=== PATIENT | female | born 1975 | race Caucasian/White ===

== ENCOUNTER 2023-10-29 13:21 | Outpatient (AMB) | payer OTHER, SELFPAY ==
[2023-10-29 13:32] VITALS: PULSE 63; O2SAT 98; BMI 41.4
--- NOTE | 2023-10-29 13:32 | A.OFFVIS_ITS ---
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 The patient is a 47 year woman with a known history of asthma in addition to allergies who presents with worsening shortness of breath. 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 The patient does get worsening asthma flare-ups if she does get a viral syndrome. Typically requires to go on prednisone and hit antibiotic. She has been doing better at this time. Continues to be on Symbicort although the Symbicort is no longer covered. She finds the ventolin also helpful as needed. She is also concerned because her mother has significant respiratory conditions. Will go ahead and request additional blood work to assess potential comorbidities that may indeed exacerbate some of his respiratory symptoms. She does follow closely with allergy immunology and will be starting allergy shots now that her condition is improved. No recent imaging studies available. Will have the patient undergo a chest x-ray in addition to blood work. Will switch her Symbicort over to Dulera where she can have some benefit of the formoterol fast effect. in the office we did have the patient undergo a spirometry which demonstrated a normal flow volume loop which is very reassuring. She does take metoprolol for issues with her blood pressure in time she has taking propranolol for her anxiety. I did advise her to try to avoid the propranolol due to the fact that is a non selective beta agonist sick and worsen her wheezing and asthma symptoms. Based on the fact that her flow volume loop is normal then safe for her to continue the metoprolol this time but I would encourage her not to increase the dose if possible. [facility] Medical History (Updated 10/29/23 @ 21:01 by George Ghosh MD) Palpitation Asthma Social History (Updated 10/29/23 @ 13:37 by BRADY Rudolph) Patient Tobacco Use Status: Former Tobacco user Tobacco use type: Cigarette Review of Systems Const Denies fever(s) Eyes Reports no additional complaints ENT Reports nasal congestion Card Denies chest pain, Reports palpitations and Reports dyspnea on exertion Resp Reports cough, Reports dyspnea on exertion and Reports wheezing GI Reports no additional complaints Musc Reports arthralgias, Reports joint swelling and Reports limited range of motion Skin/Breast Denies rash Neuro Reports no additional complaints Endo Reports palpitations Cricket/Lymph Denies lymphadenopathy Aller/Immun Reports wheezing Physical Exam Vital Signs: Last Vital Signs Pulse 63 10/29/23 13:32 Pulse Ox 98 10/29/23 13:32 Oxygen Delivery Method Room Air 10/29/23 13:32 BMI result Body Mass Index 41.4 Const General: comfortable Neck Neck: Yes supple Chest Chest palpation & inspection: normal inspection of the chest Resp Effort & Inspection: normal respiratory effort Auscultation: diminished lung sounds Cardio Heart sounds: S1 normal heart sound present and S2 normal heart sound present GI Palpation (GI): Soft to palpation Skin General skin exam: no rashes or lesions noted Extrem General: Yes no clubbing, cyanosis or edema Office Procedures Spirometry Testing Spirometry Comments: Spirometry done in the office, Dr. Ghosh has the results results scanned to her chart. 09537- Spirometry Assessment & Plan Assessment & Plan (1) Palpitation: Code(s): R00.2 - Palpitations (2) Asthma: Code(s): J45.909 - Unspecified asthma, uncomplicated Qualifiers: Asthma severity: moderate Asthma persistence: persistent Asthma complication type: uncomplicated Qualified Code(s): J45.40 - Moderate persistent asthma, uncomplicated Plan stop symbicort start Dulera BID VIJAY as needed Bloodwork CXR F/U 2-3 months Orders: Orders Alpha 1 Anti-trypsin Today J45.909 - Unspecified asthma, uncomplicated, R00.2 - Palpitations Complete Blood Count Auto Diff Today J45.909 - Unspecified asthma, uncomplicated, R00.2 - Palpitations XR chest 2V Today J45.909 - Unspecified asthma, uncomplicated Immunoglobulin E Today J45.909 - Unspecified asthma, uncomplicated, R00.2 - Palpitations Immunoglobulin G Subclasses Today J45.909 - Unspecified asthma, uncomplicated, R00.2 - Palpitations Immunoglobulins,IgG IgA IgM Today J45.909 - Unspecified asthma, uncomplicated, R00.2 - Palpitations AMB Spirometry Testing Today J45.909 - Unspecified asthma, uncomplicated Medications: New albuterol sulfate 90 mcg/actuation (Ventolin HFA) 2 puffs inhalation Q6H 30 days PRN 8.5 grams 11RF shortness of breath or wheezing mometasone-formoterol 200-5 mcg/actuation (Dulera) 2 puffs inhalation Q12H 30 days 13 grams 11RF Coding Level of Care Code New Pt Level 4 (05545) Diagnoses Palpitation R00.2 Moderate persistent asthma without complication J45.40 Asthma severity: moderate Asthma persistence: persistent Asthma complication type: uncomplicated CPT Codes Spirometry - CPT: 44046- Spirometry ([id number]) Time Spent (min) 38
== END 2023-10-29 14:11 | disposition home or self-care (01) ==
PROVIDERS: PCP Internal Medicine; Referring Provider Internal Medicine; Visit Provider Hospitalist
DX: J45.40 Moderate persistent asthma, uncomplicated (principal); R00.2 Palpitations
CPT/HCPCS: 94010; 99204

== ENCOUNTER → 2023-10-29 13:21 | Outpatient (BNVA) | payer OTHER, SELFPAY | PROVIDERS: PCP Internal Medicine; Referring Provider Internal Medicine; Visit Provider Hospitalist | DX: J45.40 Moderate persistent asthma, uncomplicated (principal); R00.2 Palpitations | CPT/HCPCS: 94010 ==

== ENCOUNTER 2024-01-30 13:52 | Outpatient (AMB) | payer OTHER, SELFPAY ==
[2024-01-30 14:03] VITALS: PULSE 67; O2SAT 97; BMI 40.9
--- NOTE | 2024-01-30 14:03 | MHC.OFFVIS ---
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 The patient does get worsening asthma flare-ups if she does get a viral syndrome. Typically requires to go on prednisone and hit antibiotic. She has been doing better at this time. Continues to be on Symbicort although the Symbicort is no longer covered. She finds the ventolin also helpful as needed. She is also concerned because her mother has significant respiratory conditions. Will go ahead and request additional blood work to assess potential comorbidities that may indeed exacerbate some of his respiratory symptoms. She does follow closely with allergy immunology and will be starting allergy shots now that her condition is improved. No recent imaging studies available. Will have the patient undergo a chest x-ray in addition to blood work. Will switch her Symbicort over to Dulera where she can have some benefit of the formoterol fast effect. in the office we did have the patient undergo a spirometry which demonstrated a normal flow volume loop which is very reassuring. She does take metoprolol for issues with her blood pressure in time she has taking propranolol for her anxiety. I did advise her to try to avoid the propranolol due to the fact that is a non selective beta agonist sick and worsen her wheezing and asthma symptoms. Based on the fact that her flow volume loop is normal then safe for her to continue the metoprolol this time but I would encourage her not to increase the dose if possible. 01/30/2024 the patient is here for pulmonary follow-up visit. Overall the patient has been doing well. We sent her Dulera but seems that he started hard time. She is having some shortness of breath. Therefore I do believe that she will do better with rescue inhaler. Will go ahead and switch it to the pharmacy. She did have a chest x-ray which I personally reviewed no significant abnormalities noted. She also had blood work. Her eosinophils were within normal limits. The patient also has been having issues with sleep. Complains of daytime drowsiness. Her [place] score is elevated 08/02. 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 The patient does have risk for sleep apnea. In addition to that she is going to need a total hip replacement. And she will need a sleep study at this time to assess her for sleep apnea in specially before her surgery. The patient is working on weight loss in order to be able have her surgery. Will therefore optimize respiratory therapy as well to try to help her with her significant wheezing. [facility] Medical History (Updated 01/30/24 @ 14:11 by George Ghosh MD) Palpitation Asthma Social History (Updated 10/29/23 @ 13:37 by BRADY Rudolph) Patient Tobacco Use Status: Former Tobacco user Tobacco use type: Cigarette Review of Systems Const Reports daytime sleepiness, Reports difficulty sleeping, Denies fever(s), Reports headache(s), Reports snoring and Reports stops breathing during sleep Eyes Reports no additional complaints ENT Reports headache(s) and Reports nasal congestion Card Denies chest pain, Reports palpitations and Reports dyspnea on exertion Resp Reports cough, Reports dyspnea on exertion, Reports snoring and Reports wheezing GI Reports no additional complaints Musc Reports arthralgias, Reports joint swelling and Reports limited range of motion Skin/Breast Denies rash Neuro Reports no additional complaints and Reports headache(s) Endo Reports palpitations Cricket/Lymph Denies lymphadenopathy Aller/Immun Reports wheezing Physical Exam Vital Signs: Last Vital Signs Pulse 67 01/30/24 14:03 Pulse Ox 97 01/30/24 14:03 Oxygen Delivery Method Room Air 01/30/24 14:03 BMI result Body Mass Index 40.9 Const General: comfortable Neck Neck: Yes supple Chest Chest palpation & inspection: normal inspection of the chest Resp Effort & Inspection: normal respiratory effort and prolonged expiratory phase Auscultation: wheezes and diminished lung sounds Cardio Heart sounds: S1 normal heart sound present and S2 normal heart sound present GI Palpation (GI): Soft to palpation Skin General skin exam: no rashes or lesions noted Extrem General: Yes no clubbing, cyanosis or edema Assessment & Plan Assessment & Plan (1) Asthma: Code(s): J45.909 - Unspecified asthma, uncomplicated Category: Medical Qualifiers: Asthma complication type: uncomplicated Asthma persistence: persistent Asthma severity: moderate Qualified Code(s): J45.40 - Moderate persistent asthma, uncomplicated (2) KARLEY (obstructive sleep apnea): Code(s): G47.33 - Obstructive sleep apnea (adult) (pediatric) Category: Medical (3) Palpitation: Code(s): R00.2 - Palpitations Category: Medical Plan stop Dulera BID start Breztri BID VIJAY as needed home PSG F/U 3 months Medications: New bgqkfbeffa-bqjubiju-zghgdxnonm 160-9-4.8 mcg/actuation (Breztri Aerosphere) 2 inhalations inhalation BID 30 days 10.7 grams 0RF tmifvhhtql-cgeyzncp-nomemwqgak 160-9-4.8 mcg/actuation (Breztri Aerosphere) 2 inhalations inhalation BID 10.7 grams 0RF 30 days Coding Level of Care Code Est Pt Level 4 (35463) Diagnoses Moderate persistent asthma without complication J45.40 Asthma complication type: uncomplicated Asthma persistence: persistent Asthma severity: moderate KARLEY (obstructive sleep apnea) G47.33 Palpitation R00.2 Time Spent (min) 17
== END 2024-01-30 14:27 | disposition home or self-care (01) ==
PROVIDERS: PCP Internal Medicine; Visit Provider Hospitalist
DX: J45.40 Moderate persistent asthma, uncomplicated (principal); G47.33 Obstructive sleep apnea (adult) (pediatric); R00.2 Palpitations
CPT/HCPCS: 99214

== ENCOUNTER → 2024-01-30 13:52 | Outpatient (BNVA) | payer OTHER, SELFPAY | PROVIDERS: PCP Internal Medicine; Visit Provider Hospitalist | DX: J45.909 Unspecified asthma, uncomplicated (principal); R00.2 Palpitations ==

== ENCOUNTER 2024-08-05 08:22 | Outpatient (AMB) | payer OTHER, SELFPAY ==
--- NOTE | 2024-08-05 08:31 | A.OFFVIS_ITS ---
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 The patient does get worsening asthma flare-ups if she does get a viral syndrome. Typically requires to go on prednisone and hit antibiotic. She has been doing better at this time. Continues to be on Symbicort although the Symbicort is no longer covered. She finds the ventolin also helpful as needed. She is also concerned because her mother has significant respiratory conditions. Will go ahead and request additional blood work to assess potential comorbidities that may indeed exacerbate some of his respiratory symptoms. She does follow closely with allergy immunology and will be starting allergy shots now that her condition is improved. No recent imaging studies available. Will have the patient undergo a chest x-ray in addition to blood work. Will switch her Symbicort over to Dulera where she can have some benefit of the formoterol fast effect. in the office we did have the patient undergo a spirometry which demonstrated a normal flow volume loop which is very reassuring. She does take metoprolol for issues with her blood pressure in time she has taking propranolol for her anxiety. I did advise her to try to avoid the propranolol due to the fact that is a non selective beta agonist sick and worsen her wheezing and asthma symptoms. Based on the fact that her flow volume loop is normal then safe for her to continue the metoprolol this time but I would encourage her not to increase the dose if p ossible. 01/30/2024 the patient is here for pulmonary follow-up visit. Overall the patient has been doing well. We sent her Dulera but seems that he started hard time. She is having some shortness of breath. Therefore I do believe that she will do better with rescue inhaler. Will go ahead and switch it to the pharmacy. She did have a chest x-ray which I personally reviewed no significant abnormalities noted. She also had blood work. Her eosinophils were within normal limits. The patient also has been having issues with sleep. Complains of daytime drowsiness. Her [place] score is elevated 08/02. 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 The patient does have risk for sleep apnea. In addition to that she is going to need a total hip replacement. And she will need a sleep study at this time to assess her for sleep apnea in specially before her surgery. The patient is working on weight loss in order to be able have her surgery. Will therefore optimize respiratory therapy as well to try to help her with her significant wheezing. 08/05/2024 the patient is here for a pulmonary follow-up visit. The patient overall has been doing well. She did have a respiratory illness in the beginning of the fall. Lastly that she developed COVID. She did take Paxlovid. The cord did not affect her lungs. She is back to her baseline. She did try the Breztri inhaler but it was not helpful. Therefore she went back to Dulera. The pressure was causing cough. Now her insurance is no longer covering Dulera and will cover Symbicort next year. Was not Symbicort in the beginning of the year. For now the patient is doing well. She had an x-ray that was without any acute disease. The patient also was requested to have a home sleep study. However the insurance would cover here [place]. Therefore we have to send her to a different institution. Will go ahead and start the process. Patient returns 6 months. If she has any issues prior to that she will call for an earlier assessment. [facility] Medical History (Updated 08/07/24 @ 14:22 by Dionicio Cm MD) Palpitation Asthma Family History (Updated 08/05/24 @ 10:20 by RAE Metcalf) Father History of heart attack Mother Cancer History of emphysema IgG deficiency Social History (Updated 08/05/24 @ 10:17 by RAE Metcalf) Household Members: Family Housing: House Alcohol intake: current Comment: Rare Patient Tobacco Use Status: Former Tobacco user Tobacco use type: Cigarette Cigarettes Per Day: 0.5 Years Smoked: 2 Review of Systems Const Reports daytime sleepiness, Reports difficulty sleeping, Denies fever(s), Rep orts headache(s), Reports snoring and Reports stops breathing during sleep Eyes Reports no additional complaints ENT Reports headache(s) and Reports nasal congestion Card Denies chest pain, Denies palpitations and Reports dyspnea on exertion Resp Reports cough, Reports dyspnea on exertion, Reports snoring and Reports wheezing GI Reports no additional complaints Musc Reports arthralgias, Reports joint swelling and Reports limited range of motion Skin/Breast Denies rash Neuro Reports no additional complaints and Reports headache(s) Endo Denies palpitations Cricket/Lymph Denies lymphadenopathy Aller/Immun Reports wheezing Physical Exam Vital Signs: Last Vital Signs Pulse 72 08/05/24 08:32 BP 140/78 H 08/05/24 08:32 Pulse Ox 97 08/05/24 08:32 Oxygen Delivery Method Room Air 08/05/24 08:32 BMI result Body Mass Index 42.3 Const General: comfortable Neck Neck: Yes supple Chest Chest palpation & inspection: normal inspection of the chest Resp Effort & Inspection: normal respiratory effort and No prolonged expiratory phase Auscultation: clear to auscultation bilaterally and no wheezes Cardio Heart sounds: S1 normal heart sound present and S2 normal heart sound present GI Palpation (GI): Soft to palpation Skin General skin exam: no rashes or lesions noted Extrem General: Yes no clubbing, cyanosis or edema Immunizations pneumoc 20-jessica conj-dip cr(PF) 0.5 mL IM syringe Performing Provider: George Ghosh MD [place] [facility] [place] [facility] Administered by: Kell Allen LPN on 08/05/24 08:58 Dose Route Admin Location Dispensed Lot Number Expiration Date NDC Vascular Ultrasound Technician 0.5 mL IM Left Deltoid 0.5 mL [id number] 10/09/25 [employer] VIS Given Date VIS Provided VIS Publication Date 08/05/24 Single Vaccine 23 Eligibility Eligibility Date Funding Source Not [facility] Eligible 08/05/24 Private Assessment & Plan Assessment & Plan (1) Asthma: Code(s): J45.909 - Unspecified asthma, uncomplicated Category: Medical Qualifiers: Asthma complication type: uncomplicated Asthma persistence: persistent Asthma severity: moderate Qualified Code(s): J45.40 - Moderate persistent asthma, uncomplicated (2) KARLEY (obstructive sleep apnea): Code(s): G47.33 - Obstructive sleep apnea (adult) (pediatric) Category: Medical (3) Palpitation: Code(s): R00.2 - Palpitations Category: Medical Plan stopped Breztri BID continue Dulera for now. Will change to symbicort VIJAY as needed home PSG F/U 6 months Orders: Orders Pneumococcal 20 Immunization 08/05/24 Z23 - Encounter for immunization Medications: Changed From albuterol sulfate 90 mcg/actuation (Ventolin HFA) 2 puffs inhalation Q6H 30 days PRN 8.5 grams 11RF shortness of breath or wheezing To albuterol sulfate 90 mcg/actuation 2 puffs inhalation Q6H PRN 8.5 grams 11RF shortness of breath or wheezing 30 days Coding Level of Care Code Est Pt Level 4 (24616) Diagnoses Moderate persistent asthma without complication J45.40 Asthma complication type: uncomplicated Asthma persistence: persistent Asthma severity: moderate KARLEY (obstructive sleep apnea) G47.33 Palpitation R00.2 Time Spent (min) 16
[2024-08-05 08:32] VITALS: BP 140/78; PULSE 72; O2SAT 97; BMI 42.3
== END 2024-08-05 08:54 | disposition home or self-care (01) ==
PROVIDERS: PCP Internal Medicine; Visit Provider Hospitalist
DX: J45.40 Moderate persistent asthma, uncomplicated (principal); G47.33 Obstructive sleep apnea (adult) (pediatric); R00.2 Palpitations
CPT/HCPCS: 99214

== ENCOUNTER → 2024-08-05 08:22 | Outpatient (BNVA) | payer OTHER, SELFPAY | PROVIDERS: PCP Internal Medicine; Visit Provider Hospitalist | DX: H16.229 Keratoconjunctivitis sicca, not specified as Sjogren's, unspecified eye (principal); R68.2 Dry mouth, unspecified; R21 Rash and other nonspecific skin eruption; Z23 Encounter for immunization; J45.40 Moderate persistent asthma, uncomplicated; G47.33 Obstructive sleep apnea (adult) (pediatric); R00.2 Palpitations | CPT/HCPCS: 90471; 90677 ==

== ENCOUNTER 2024-08-05 10:01 | Outpatient (AMB) | payer OTHER, SELFPAY ==
--- NOTE | 2024-08-05 10:09 | MHC.OFFVIS ---
Vital Signs 08/05/24 10:20 Height 5 ft 7.5 in Weight 275 lb 12.772 oz BMI 42.6 BP 140/82 H Blood Pressure Location Lt brachial Position Sitting Respiration 16 Pulse 61 Pulse Source Pulse Oximeter Pulse Oximetry (%) 97 Oxygen Delivery Method Room Air Intake Visit Reasons: SS Intake Note: Patient presents for SS. Dry eyes, dry lips and dry legs Allergies codeine Adverse Reaction (Severe, Verified 08/05/24 10:12) Nausea and Vomiting cromolyn Adverse Reaction (Severe, Verified 08/05/24 10:12) Skin Rash minocycline Adverse Reaction (Severe, Verified 08/05/24 10:12) Hemorrage HPI HPI SS: Details: Patient [facility] month evaluation of Sjogren syndrome but I do not have results. She has dry eyes and dry mouth. Her motor bus driver is treating her for dry eyes and she is currently on Xiidra and Systane with benefit. Cleaning Matron will be doing Nataliia's test next spring. dry mouth is not controlled. Drinks 60 oz water a day. She has relief with xylimelts. She has tried Biotene spray without benefit. She had a lesion on her right breast with ultrasound showing thickening of skin. Biopsy was done with results pending. She is trying to obtain skin biopsy results for me that she has had done in the past. She had tried to print lab results from [facility] but unfortunately the values of the test results for patient were not on the documentation that patient brought in only reference ranges. Denies fevers, new rash, dyspnea, urinary symptoms, Raynaud's phenomenon. [facility] Medical History (Updated 08/07/24 @ 14:22 by Dionicio Cm MD) Palpitation Asthma Family History (Updated 08/05/24 @ 10:20 by RAE Metcalf) Father History of heart attack Mother Cancer History of emphysema IgG deficiency Social History (Updated 08/05/24 @ 10:17 by RAE Metcalf) Household Members: Family Housing: House Alcohol intake: current Comment: Rare Patient Tobacco Use Status: Former Tobacco user Tobacco use type: Cigarette Cigarettes Per Day: 0.5 Years Smoked: 2 Review of Systems Const All systems reviewed & are unremarkable except as noted in HPI and below Physical Exam Vital Signs: Last Vital Signs Pulse 61 08/05/24 10:20 Resp 16 08/05/24 10:20 BP 140/82 H 08/05/24 10:20 Pulse Ox 97 08/05/24 10:20 Oxygen Delivery Method Room Air 08/05/24 10:20 BMI result Body Mass Index 42.6 Const Other: General: Comfortable Oral: No lesions present. Lymph nodes: No cervical lymphadenopathy CVS: RRR Respiratory: clear to auscultation bilaterally. Good respiratory effort Skin: Anterior chest telangiectasia present, biopsy lesion noted right anterior superior breast MSK: No tenderness of joints. No synovitis. Good range of motion of upper extremity lower extremity. Assessment & Plan Assessment & Plan (1) Keratoconjunctivitis sicca: Comment: Left eye noted on eye exam 02/28/2023. Bilateral dry eyes treated with Xiidra and sustained with benefit. She also has meibomian gland dysfunction. Follows with [facility]. She also has symptoms of dry mouth and skin lesions with reported skin thickening on breast lesion concerning for morphea but with biopsy results pending. Workup was done last visit but I do not have results. I will request lab results from [facility] [place] and have patient follow-up closely to review results. Code(s): H16.229 - Keratoconjunctivitis sicca, not specified as Sjogren's, unspecified eye Category: Medical Plan: Requesting lab results and clinic notes from [facility] Continue follow-up with Ophthalmology for management of keratoconjunctivitis sicca. She will plan to have Nataliia's tests done next spring. Return to clinic in 1 month (2) Dry mouth: Comment: Controlled. Code(s): R68.2 - Dry mouth, unspecified Category: Medical Plan: See above Continue XyliMelts as needed She will try OTC Biotene products (3) Rash and other nonspecific skin eruption: Comment: Skin lesion on right breast was biopsy noted to be thickened on ultrasound. ?Morphea Code(s): R21 - Rash and other nonspecific skin eruption Category: Medical Plan: Patient will obtain skin biopsy results and bring it to follow-up appointment Return to clinic in 1 month Coding Level of Care Code Est Pt Level 4 (27130) Complex EM visit Add On G2211 Diagnoses Keratoconjunctivitis sicca H16.229 Dry mouth R68.2 Rash and other nonspecific skin eruption R21
[2024-08-05 10:20] VITALS: BP 140/82; PULSE 61; RESP 16; O2SAT 97; BMI 42.6
== END 2024-08-05 10:59 | disposition home or self-care (01) ==
PROVIDERS: PCP Internal Medicine; Visit Provider Internal Medicine Rheumatology
DX: H16.229 Keratoconjunctivitis sicca, not specified as Sjogren's, unspecified eye (principal); R68.2 Dry mouth, unspecified; R21 Rash and other nonspecific skin eruption
CPT/HCPCS: 99214; G2211

== ENCOUNTER 2024-12-31 12:45 | Outpatient (AMB) | payer OTHER, SELFPAY ==
[2024-12-31 13:01] VITALS: BP 120/70; PULSE 80; O2SAT 98; BMI 42.7
--- NOTE | 2024-12-31 13:01 | A.OFFVIS_ITS ---
Vital Signs 12/31/24 13:01 Height 5 ft 7.5 in Weight 276 lb 10.882 oz BMI 42.7 BP 120/70 Blood Pressure Location Lt brachial Position Sitting Pulse 80 Pulse Source Pulse Oximeter Pulse Oximetry (%) 98 Oxygen Delivery Method Room Air Intake Visit Reasons: Follow up sleep studylunch check from being sick Allergies cromolyn Adverse Reaction (Severe, Verified 12/31/24 13:05) Skin Rash minocycline Adverse Reaction (Severe, Verified 12/31/24 13:05) Hemorrage HPI Comments Details: The patient is a 49 year woman with a known history of asthma in addition to allergies who presents with worsening shortness of breath. 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 The patient does get worsening asthma flare-ups if she does get a viral syndrome. Typically requires to go on prednisone and hit antibiotic. She has been doing better at this time. Continues to be on Symbicort although the Symbicort is no longer covered. She finds the ventolin also helpful as needed. She is also concerned because her mother has significant respiratory conditions. Will go ahead and request additional blood work to assess potential comorbidities that may indeed exacerbate some of his respiratory symptoms. She does follow closely with allergy immunology and will be starting allergy shots now that her condition is improved. No recent imaging studies available. Will have the patient undergo a chest x-ray in addition to blood work. Will switch her Symbicort over to Dulera where she can have some benefit of the formoterol fast effect. in the office we did have the patient undergo a spirometry which demonstrated a normal flow volume loop which is very reassuring. She does take metoprolol for issues with her blood pressure in time she has taking propranolol for her anxiety. I did advise her to try to avoid the propranolol due to the fact that is a non selective beta agonist sick and worsen her wheezing and asthma symptoms. Based on the fact that her flow volume loop is normal then safe for her to continue the metoprolol this time but I would encourage her not to increase the dose if possible. 01/30/2024 the patient is here for pulmonary follow-up visit. Overall the patient has been doing well. We sent her Dulera but seems that he started hard time. She is having some shortness of breath. Therefore I do believe that she will do better with rescue inhaler. Will go ahead and switch it to the pharmacy. She did have a chest x-ray which I personally reviewed no significant abnormalities noted. She also had blood work. Her eosinophils were within normal limits. The patient also has been having issues with sleep. Complains of daytime drowsiness. Her Holcombe score is elevated 08/02. 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 The patient does have risk for sleep apnea. In addition to that she is going to need a total hip replacement. And she will need a sleep study at this time to assess her for sleep apnea in specially before her surgery. The patient is working on weight loss in order to be able have her surgery. Will therefore optimize respiratory therapy as well to try to help her with her significant wheezing. 08/05/2024 the patient is here for a pulmonary follow-up visit. The patient overall has been doing well. She did have a respiratory illness in the beginning of the fall. Lastly that she developed COVID. She did take Paxlovid. The cord did not affect her lungs. She is back to her baseline. She did try the Breztri inhaler but it was not helpful. Therefore she went back to Dulera. The pressure was causing cough. Now her insurance is no longer covering Dulera and will cover Symbicort next year. Was not Symbicort in the beginning of the year. For now the patient is doing well. She had an x-ray that was without any acute disease. The patient also was requested to have a home sleep study. However the insurance would cover here [place]. Therefore we have to send her to a different institution. Will go ahead and start the process. Patient returns 6 months. If she has any issues prior to that she will call for an earlier assessment. 12/31/2024 the patient is here for a pulmonary follow-up visit. Overall the ciaran marie has been doing okay. She was sick with a respiratory viral illness resulting worsening cough chest congestion wheezing. She did go to an urgent care and the patient was given Augmentin. She took it for about for 5 days but then developed significant diarrhea and she stopped it. She did call the office we have called some prednisone she did start taking it and she has been a little better. Her cough still bothering her at nighttime she has a hard time sleeping will go and start her on a Z-Krishna and also will go ahead and provide her cough medication. She will continue with respiratory therapy. In the meantime she does have some daytime drowsiness. Holcombe score is elevated 8/24 but primarily now because she has a cough. She did have a sleep study demonstrating mild sleep apnea with an AHI of 7. At this point she can continue with positional therapy as this may be just as effective to her sleep apnea. She can proceed with her orthopedic surgery at this time. The patient did have a chest x-ray at the urgent care I do not have the results but she was told that they will call her if any abnormalities were noted. She was not called. [facility] Medical History (Updated 08/07/24 @ 14:22 by Dionicio Cm MD) Palpitation Asthma Family History (Updated 08/05/24 @ 10:20 by RAE Metcalf) Father History of heart attack Mother Cancer History of emphysema IgG deficiency Social History (Reviewed 12/31/24 @ 13:07 by Angie Bravo [facility]) Household Members: Family Housing: House Alcohol intake: current Comment: Rare Patient Tobacco Use Status: Former Tobacco user Tobacco use type: Cigarette Cigarettes Per Day: 0.5 Years Smoked: 2 Review of Systems Const Denies chills, Reports fatigue, Denies fever(s), Denies weight gain and Denies weight loss Eyes Reports no additional complaints ENT Denies dizziness Card Denies chest pain, Denies leg edema, Denies lightheadedness, Denies palpitations, Denies dyspnea on exertion, Denies orthopnea and Denies other Resp Reports cough, Denies dyspnea on exertion and Reports wheezing GI Denies hematochezia and Denies change in stool character Musc Denies abnormal gait, Denies muscle weakness, Denies numbness, Denies radiating pain into limb and Denies tingling Skin/Breast Denies rash Neuro Denies abnormal gait, Denies dizziness, Denies numbness and Denies tingling Endo Reports fatigue and Denies palpitations Cricket/Lymph Denies lymphadenopathy Aller/Immun Reports wheezing Physical Exam Vital Signs: Last Vital Signs Pulse 80 12/31/24 13:01 BP 120/70 12/31/24 13:01 Pulse Ox 98 12/31/24 13:01 Oxygen Delivery Method Room Air 12/31/24 13:01 BMI result Body Mass Index 42.7 Const General: comfortable Neck Neck: Yes supple Chest Chest palpation & inspection: normal inspection of the chest Resp Effort & Inspection: normal respiratory effort, Actively coughing and No prolonged expiratory phase Auscultation: no wheezes and diminished lung sounds Cardio Heart sounds: S1 normal heart sound present and S2 normal heart sound present GI Palpation (GI): Soft to palpation Skin General skin exam: no rashes or lesions noted Extrem General: Yes no clubbing, cyanosis or edema Assessment & Plan Assessment & Plan (1) Asthma: Code(s): J45.909 - Unspecified asthma, uncomplicated Category: Medical Qualifiers: Asthma complication type: uncomplicated Asthma persistence: persistent Asthma severity: moderate Qualified Code(s): J45.40 - Moderate persistent asthma, uncomplicated (2) KARLEY (obstructive sleep apnea): Code(s): G47.33 - Obstructive sleep apnea (adult) (pediatric) Category: Medical (3) Palpitation: Code(s): R00.2 - Palpitations Category: Medical Plan continue symbicort VIJAY as needed nebs BID until better start Azithromycin cough medicine home PSG, only mild KARLEY, will continue positional therapy F/U 6 months Medications: New azithromycin 500 mg PO DAILY 5 tabs 0RF 5 days codeine-guaifenesin 10-100 mg/5 mL 10 mL PO Q6H PRN 300 mL 0RF cough 10 days ipratropium-albuterol 0.5 mg-3 mg(2.5 mg base)/3 mL 3 mL inhalation Q6-8H PRN 180 mL 6RF shortness of breath 30 days Changed From budesonide-formoterol 160-4.5 mcg/actuation (Symbicort) inhalation To budesonide-formoterol 160-4.5 mcg/actuation (Symbicort) 2 inhalations inhalation BID 10.2 grams 11RF 30 days Coding Level of Care Code Est Pt Level 4 (56138) Diagnoses Moderate persistent asthma without complication J45.40 Asthma complication type: uncomplicated Asthma persistence: persistent Asthma severity: moderate KARLEY (obstructive sleep apnea) G47.33 Palpitation R00.2 Time Spent (min) 17
--- OUTSIDE RECORDS SUMMARY | 2024-12-31 15:01 | XMS_ITS | Referral Summary ---
Author Organization [facility] Address [address] [place] [address] Care Team Providers Care Machinist Linotype Name Role Phone Zulma Taylor Primary Care Provider [phone] Allergies Active Allergy Reactions Criticality Noted Date Comments Levonorgestrel-Ethinyl Estrad Unknown 03/05/2022 Minocycline Hcl Headache Oxycodone-Acetaminophen Nausea,Headache, Naus ea And Vomiting,Vomiting Medium 03/02/2015 Migraine, vomiting. Potassium Dichromate Unknown 10/30/[address] (PROTONIX) 20 mg tablet Take 20 mg by mouth daily. 2 Active fexofenadine (ANDREW) 180 mg tablet Take 180 mg by mouth daily. 2 Active azelastine (ASTELIN) 137 mcg (0.1 %) nasal spray Administer 2 sprays into each nostril once a day. 2 Active azelastine (OPTIVAR) 0.05 % ophthalmic solution 2 Active acyclovir (ZOVIRAX) 5% cream 1 application as needed. 2 Active albuterol 2.5 mg/3 mL (0.083%) nebulizer solution as needed. 1 Active budesonide-form oteroL (SYMBICORT) 160-4.5 mcg inhaler Inhale 2 puffs by mouth once a day. 1 Active clindamycin (CLEOCIN T) 1 % lotion Apply 1 application topically to the affected area as needed. 2 Active cyclobenzaprine (FLEXERIL) 10 mg tablet Take 10 mg by mouth as needed. 2 Active dextroamphetami ne-amphetamine XR (ADDERALL XR) 20 mg capsule Take 20 mg by mouth as needed. 2 Active hydroCHLOROthia zide (HYDRODIURIL) 25 mg tablet Take 12.5 mg by mouth once a day. 2 Active LORazepam (ATIVAN) 0.5 mg tablet Take 0.5 mg by mouth as needed. Active mometasone (NASONEX) nasal spray Administer 2 sprays into affected nostril(s) once a day. Active propranoloL (INDERAL) 10 mg tablet Take 10 mg by mouth as needed. Active valACYclovir (VALTREX) 500 mg tablet Take 500 mg by mouth as needed. Active fluticasone propionate (FLONASE) 50 mcg/actuation nasal spray Administer 1 spray into each nostril once a day. Active metoprolol succinate XL (TOPROL XL) 50 mg tablet Take 50 mg by mouth daily. 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 Overview (03/05/2022): Sigmoid mass History of hip replacement, total, left 01/24/20 19 Multinodular goiter 01/23/2019 Herpes labialis 01/23/2019 Raynaud's disease 01/23/2019 Perennial allergic rhinitis 01/23/2019 Anxiety 03/14/2015 GERD (gastroesophageal reflux disease) 5 Osteoarthritis of left hip 01/29/2015 Asthma 01/13/2015 Colitis cystica profunda 10/30/2013 Elevated antibody levels 10/28/2013 Rosacea 08/01/2012 Livedo reticularis 08/01/2012 Flushing 06/26/2012 Hidradenitis suppurativa 06/26/2012 Acne vulgaris 06/26/2012 Resolved Problems Problem Noted Date Diagnosed Date Resolved Date Joint pain, hip Left 10/01/2012 023 Social History Tobacco Use Types Packs/Day Years Used Date Smoking Tobacco: Former Passive Smoke Exposure: Past Smokeless Tobacco: Never Comments:: Alcohol Use Standard Drinks/Week Comments Not Currently 0 (1 standard drink = 0.6 oz pur e alcohol) Comments Unknown Sex and Gender Information Value Date Recorded Sex Assigned at Female 09/05/2022 8:05 AM EST Legal Sex Female 8:26 AM EDT Gender Identity Female 09/05/2022 8:05 AM EST Sexual Orientation Straight 09/05/2022 8: 05 AM EST Last Filed Vital Signs Vital Sign Reading Time Taken Comments Blood Pressure 126/84 03/07/2023 7:38 AM EDT Pulse 66 03/07/2023 7:38 AM EDT Temperature 36.7 ??C (98 ??F) 03/07/2023 7:38 AM EDT Respiratory Rate - - Oxygen Saturation 100% 08/10/2014 9:48 AM EST Inhaled Oxygen Concentration - - Weight 124.3 kg (274 lb) 03/07/2023 7:38 AM EDT Height 171.5 cm (5' 7.5 ) 03/05/2022 7:41 AM EDT Body Mass Index 42.28 03/05/2022 7:41 AM EDT Plan of Treatment Not on file Procedures * Due to [place] [employer] law, this organization might not be sharing negative HIV tests. Procedure Name Priority Date/Time Associated Diagnosis Comments COMPREHENSIVE METABOLIC PANEL Routine 03/07/2023 8:39 AM EDT Abnormal liver function test from Last 3 Months or Most Recently Relevant to Health Maintenance Results * Due to [place] [employer] law, this organization might not be sharing negative HIV tests. * Comprehensive metabolic panel (03/07/2023 8:39 AM EDT) NA 137 135 - 145 mmol/L 03/07/2023 9:54 AM EDT [facility] K 3.7 3.5 - 5.3 mmol/L 03/07/2023 9:54 AM EDT [facility] Cl 101 97 - 110 mmol/L 03/07/2023 9:54 AM [facility] CO2 30 24 - 32 mmol/L 03/07/2023 9:54 AM [facility] Anion Gap 6 5 - 15 03/07/2023 9:54 AM [facility] Glucose 96 70 - 99 mg/dL 03/07/2023 9:54 AM [facility] Creatinine 0.68 0.50 - 1.20 mg/dL 03/07/2023 9:54 AM [facility] Calcium 9.5 8.7 - 10.7 mg/dL 03/07/2023 9:54 AM [facility] Total Protein 7.7 6.0 - 8.0 g/dL 03/07/2023 9:54 AM [facility] Albumin 4.2 3.5 - 4.8 g/dL 03/07/2023 9:54 AM [facility] Bilirubin, Total 0.4 0.3 - 1.2 mg/dL 03/07/2023 9:54 AM [facility] Alkaline Phosphatase 58 30 - 115 U/L 03/07/2023 9:54 AM [facility] AST 17 10 - 40 U/L 03/07/2023 9:54 AM [facility] ALT 16 10 - 40 U/L 03/07/2023 9:54 AM [facility] BUN 15 7 - 23 mg/dL 03/07/2023 9:54 AM [facility] eGFR >90 >=60 mL/min/1. 73m2 03/07/2023 9:54 AM [facility] Comment:The estimated glomer ular filtration rate (eGFR) is calculated using a new formula developed by the NKF-ASN task force to eliminate race-based correction factors. The new formula uses serum/plasma creatinine, age, and gender to determine eGFR. A value below 60mls/min might indicate kidney disease and will be flagged. For additional information, see Morgan et al, Am J Kidney Dis. 2021;79(2):268- 288, A Unifying Approach for GFR estimation: Recommendations of the NKF-ASN Task Force on Reassessing the Inclusion of Race in Diagnosing Kidney Disease . Blood Structure of peripheral vein / Unknown Venipuncture / Unknown 03/07/2023 8:39 AM EDT 03/07/2023 8:53 AM EDT us Carolyn Merino MD LAB BLOOD ORDERABLES Final Resul t [facility] [address] [place] [address], from Last 3 Months or Most Recently Relevant to Health Maintenance Insurance * Guarantor: Rosie Calderon Account Type Relation to Patient Date of Phone Billing Address Personal/Family Self 1975 [address] [place] [address] [facility] * Guarantor: Rosie Calderon Account Type Relation to Patient Date of Phone Billing Address [employer] Liability Self 1975 [address] [place] [address] Care Teams Machinist Linotype Relationship Specialty Start Date End Date Shaynecarlton Zulma Kennedy [address] [place] [address] PCP - General 03/28/17
--- OUTSIDE RECORDS SUMMARY | 2024-12-31 15:01 | XMS_ITS | Clinical Summary ---
Author Organization [facility] Address [address] [place] [address] Care Team Providers Care Rn Chemical Dependency Name Role Phone Mckayla Grimes MD Primary Care Provider Unav ailable Allergies Active Allergy Reactions Criticality Noted Date Comments Adhesive Tape Rash Low 03/02/2015 Bandaids Amlodipine Swelling 04/15/2023 Bacitracin Rash Low 03/02/2015 Ciprofloxacin-Hydrocor tisone 02/03/2023 Codeine Nausea Only,Other (See Comments),Nausea And Vomiting 03/02/2015 Headache Nausea, migraine. 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 0 Active EPINEPHrine 0.3 MG/0.3ML SOSY 1 Device. 0 07/04/2021 Active fexofenadine (ANDREW) 180 MG tablet Take 1 tablet (180 mg total) by mouth. 0 08/26/2012 Active pantoprazole (PROTONIX) 40 MG tablet pantoprazole 40 mg tablet,delayed release 0 Active Mometasone Furoate (NASONEX NA) 2 sprays, Daily, 0 Refills, Maintenance 0 08/26/2012 Active montelukast (SINGULAIR) 10 MG tablet 0 01/06/2023 Active azelastine (OPTIVAR) 0.05 % ophthalmic solution 0 03/11/2023 Active azelastine (ASTELIN) 0.1 % nasal spray spray or apply 2 sprays inside Nose. 0 03/01/2022 Active metoprolol succinate (TOPROL-XL) 24 hr tablet 50 mg 2 (two) times a day. 0 03/27/2023 Ac tive amphetamine-dextro amphetamine (ADDERALL XR) 20 MG 24 hr capsule Take 1 capsule (20 mg total) by mouth. 0 01/24/2022 Active Lifitegrast (XIIDRA OP) Apply to eye. 1 drop each eye BID 0 Active Acyclovir 5 % cream Apply 1 application. topically as needed. 0 02/26/2022 Active albuterol 108 (90 Base) MCG/ACT inhaler Inhale 2 puffs into the lungs every 6 (six) hours as needed. 0 09/18/2017 Active albuterol (PROVENTIL) (2.5 MG/3ML) 0.083% nebulizer solution as needed. 0 05/16/2021 Active budesonide-formote rol (SYMBICORT) 160-4.5 MCG/ACT inhaler Inhale 2 puffs into the lungs 2 (two) times a day. 0 07/04/2021 Active meloxicam (MOBIC) 15 MG tablet 0 03/27/2023 Active Acetaminophen (TYLENOL 8 HOUR PO) Take 500 mg by mouth every night at bedtime. 2 tabs 0 Active hydroCHLOROthiazid e (HYDRODIURIL) tablet 25 mg Take 1 tablet (25 mg total) by mouth daily. 90 tablet 0 04/24/2023 Active Active Problems Problem Noted Date Diagnosed Date Primary hypertension 04/15/2023 Social anxiety disorder 04/15/2023 Attention deficit hyperactivity disorder (ADHD) 04/15/2023 Lesion of liver 04/15/2023 Anti-phospholipid syndrome 04/15/2023 Family History Medical History Relation Name Comments Autoimmune disease Brother Hepatitis Brother Hyperlipidemia Brother Raynaud syndrome Brother Heart attack Father Heart disease Father Hyperlipidemia Father Aneurysm Maternal Grandmother brain Ataxia Maternal Grandmother Stroke Maternal Grandmother Anxiety disorder Mother Blood Clots Mother COPD Mother Alpha 1 tryptas e def Cancer Mother Small Cell LUng CA Depression Mother Lung disease Mother Thyroid disease Mother Heart disease Paternal Grandfather Relation Name Status Comments Brother Alive Father Maternal Grandfather Maternal Grandmother Mother Paternal Grandfather Paternal Grandmother Social History Tobacco Use Types Packs/Day Years Used Date Smoking Tobacco: Former Cigarettes Q uit: 1992 Smokeless Tobacco: Never Tobacco Cessation:Counseling Given: Not Answered Alcohol Use Standard Drinks/Week Comments Yes 0 (1 standard drink = 0.6 oz pur e alcohol) occasionally Sex and Gender Information Value Date Recorded Sex Assigned at Female 09/25/2021 11:15 AM EST Gender Identity Female 09/25/2021 11:15 AM EST Sexual Orientation Not on file Job Start Date Occupation Industry Not on file Not on file Not on file Last Filed Vital Signs Vital Sign Reading Time Taken Comments Blood Pressure 131/80 04/15/2023 2:06 PM EDT Pulse 79 04/15/2023 2:03 PM EDT Temperature 36.8 ??C (98.2 ??F) 04/15/2023 2:03 PM ED T Respiratory Rate - - Oxygen Saturation 99% 04/15/2023 2:03 PM EDT Inhaled Oxygen Concentration - - Weight 126.6 kg (279 lb) 04/15/2023 2:03 PM EDT Height 170.2 cm (5' 7 ) 04/15/2023 2:03 PM EDT Body Mass Index 43.7 04/15/2023 2:03 PM EDT Plan of Treatment Health Maintenance Due Date Last Done Comments Hepatitis B Vaccines (1 of 3 - 3-dose series) 1975 Hepatitis C Screening 1975 COVID-19 Vaccine (#1) 06/17/1974 Pneumococcal Vaccine (1 of 2 - PCV) 12/17/1979 BMI Counseling 12/17/1991 Preventative Health Evaluation 12/17/1991 DTap / Tdap / Td (1 - Tdap) 1992 Cervical Cancer Screening (Pap Smear) 1994 Colon Cancer Screening (Colonoscopy) 2018 Breast Cancer Screening (Mammogram) 12/17/2023 Shingrix-Zoster Vaccine (1 of 2) 12/17/2023 Depression Screening 04/15/2024 04/15/2023 Influenza Vaccine (#1) 2024 2, 08/10/2021, 07/25/2020, Additional history exists RSV Ped < 20 months Aged Out No longe r eligible based on patient's age to complete this topic Care Teams Rn Chemical Dependency Relationship Specialty Start Date End Date Mckayla Grimes MD PCP - General Internal Medicine 04/16/23
--- OUTSIDE RECORDS SUMMARY | 2024-12-31 15:01 | XMS_ITS | Clinical Summary ---
Author Organization [facility] Address [address] [place] [address] Care Team Providers Care Washing Machine Repairer Name Role Phone Zulma Taylor Primary Care Provider [phone] Allergies Active Allergy Reactions Criticality Noted Date [...] Date Joint pain, hip Left 10/01/2012 023 Family History Medical History Relation Name Comments Raynaud syndrome Brother Myocardial Infarction Father Adrenal disorder Mother Alpha-1 antitrypsin deficiency Mother Thyroid disease Mother Thyroid disease Mother's Sister Inflammatory bowel disease Neg Hx Systemic Lupus Erythematosus Neg Hx Relation Name Status Comments Brother Alive Father Mother Alive Mother's Sister Alive Social History Tobacco Use Types Packs/Day Years [...] 03/05/2022 7:41 AM EDT Plan of Treatment Health Maintenance Due Date Last Done Comments Cervical Cancer Screening 1973 Cologuard 1973 Colon Cancer Screening 1973 Colonoscopy 1973 FOBT / Fit Test 1973 HIV Screening 1973 HPV and Pap Smear 1973 Hepatitis C Screening 1973 Pap Smear 1973 Sigmoidoscopy 1973 Hepatitis B Vaccines (1 of 3 - 19+ 3-dose series) 1992 Pneumococcal Vaccine: 50+ Ye ars (1 of 2 - PCV) 1992 DTaP,Tdap,and Td Vaccines (1 - Tdap) 12/17/[address] Lung Cancer Screening (Baseline) 12/17/2023 Zoster Vaccines (1 of 2) 12/17/2023 Basic Metabolic Panel 03/07/2024 03/07/2023 COVID-19 Vaccine (4 - 2023-2 5 season) 2024 07/10/2021, 11/26/2020, 10/29/2020 Alcohol/Substance Use Screening 09/09/2024 Depression Screening and Follow-Up 09/09/2024 Social Drivers of Health Carline ual Screening 09/09/2024 Influenza Vaccine (Season Ended) 2025 09/24/2023, 06/26/2022, 08/10/2021, Additional history exists RSV Vaccine (60+ years old a nd patients) (1 - 1-dose 75+ series) 2048 Procedures * Due to [place] [employer] law, this organization might not be sharing negative HIV tests. Procedure Name Priority Date/Time Associated Diagnosis Comments COMPREHENSIVE METABOLIC PANEL Routine 03/07/2023 8:39 AM EDT Abnormal liver function test from Last 3 Months or Most Recently Relevant to Health Maintenance Results * Due to [place] [employer] law, this organization might not be sharing negative HIV tests. * Comprehensive metabolic panel (03/07/2023 8:39 AM EDT) NA 137 135 - 145 mmol/L 03/07/2023 9:54 AM EDT [facility] K 3.7 3.5 - 5.3 mmol/L 03/07/2023 9:54 AM EDT [facility] Cl 101 97 - 110 mmol/L 03/07/2023 9:54 AM EDT [facility] CO2 30 24 - 32 mmol/L 03/07/2023 9:54 AM EDT [facility] Anion Gap 6 5 - 15 03/07/2023 9:54 AM EDT [facility] Glucose 96 70 - 99 mg/dL 03/07/2023 9:54 AM [facility] Creatinine 0.68 0.50 - 1.20 mg/dL 03/07/2023 9:54 AM [facility] Calcium 9.5 8.7 - 10.7 mg/dL 03/07/2023 9:54 AM [facility] Total Protein 7.7 6.0 - 8.0 g/dL 03/07/2023 9:54 AM [facility] Albumin 4.2 3.5 - 4.8 g/dL 03/07/2023 9:54 AM [facility] Bilirubin, Total 0.4 0.3 - 1.2 mg/dL 03/07/2023 9:54 AM [facility] Alkaline Phosphatase 58 30 - 115 U/L 03/07/2023 9:54 AM [facility] AST 17 10 - 40 U/L 03/07/2023 9:54 AM [facility] ALT 16 10 - 40 U/L 03/07/2023 9:54 AM [facility] BUN 15 7 - 23 mg/dL 03/07/2023 9:54 AM [facility] eGFR >90 >=60 mL/min/1. 73m2 03/07/2023 9:54 AM [facility] Comment:The estimated glomer ular filtration rate (eGFR) is calculated using a new formula developed by the NKF-ASN task force to eliminate race-based correction factors. The new formula uses serum/plasma creatinine, age, and gender to determine eGFR. A value below 60mls/min might indicate kidney disease and will be flagged. For additional information, see Morgan rodriguez al, Am J Kidney Dis. 2021;79(2):268- 288, A Unifying Approach for GFR estimation: Recommendations of the NKF-ASN Task Force on Reassessing the Inclusion of Race in Diagnosing Kidney Disease . Blood Structure of peripheral vein / Unknown Venipuncture / Unknown 03/07/2023 8:39 AM EDT 03/07/2023 8:53 AM EDT us Carolyn Merino MD LAB BLOOD ORDERABLES Final [facility]ul t [facility] [address] [place] [address], from Last 3 Months or Most Recently Relevant to Health Maintenance Insurance * Guarantor: Rosie Calderon Account Type Relation to Patient Date of Phone Billing Address Personal/Family Self 1975 [address] [place] [address] [facility] * Guarantor: Rosie Calderon Account Type Relation to Patient Date of Phone Billing Address Third Constitution Party Liability Self 1975 [address] [place] [address] Care Teams Washing Machine Repairer Relationship Specialty Start Date End Date Zulma Taylor [address] [place] [id number] PCP - General 03/28/17
== END 2024-12-31 14:18 | disposition home or self-care (01) ==
LOC: HO.HPS 12:46
PROVIDERS: PCP Internal Medicine; Visit Provider Hospitalist
DX: J45.40 Moderate persistent asthma, uncomplicated (principal); G47.33 Obstructive sleep apnea (adult) (pediatric); R00.2 Palpitations
CPT/HCPCS: 99214

== ENCOUNTER 2025-03-22 15:26 | Outpatient (AMB) | payer OTHER, SELFPAY ==
[2025-03-22 15:27] VITALS: BP 124/76; PULSE 78; O2SAT 96; BMI 42.5
--- NOTE | 2025-03-22 15:27 | A.OFFVIS_ITS ---
Vital Signs 03/22/25 15:27 Height 5 ft 7.5 in Weight 275 lb 9.245 oz BMI 42.5 BP 124/76 Blood Pressure Location Lt brachial Position Sitting Pulse 78 Pulse Source Pulse Oximeter Pulse Oximetry (%) 96 Oxygen Delivery Method Room Air Intake Visit Reasons: Left side lung pain/preop Fashion Styling Intern Required: No Allergies cromolyn Adverse Reaction (Severe, Verified 03/22/25 15:30) Skin Rash minocycline Adverse Reaction (Severe, Verified 03/22/25 15:30) Hemorrage HPI Comments Details: The patient is a 49 year woman with a known history of asthma in addition to allergies who presents with worsening shortness of breath. 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 The patient does get worsening asthma flare-ups if she does get a viral syndrome. Typically requires to go on prednisone and hit antibiotic. She has been doing better at this time. Continues to be on Symbicort although the Symbicort is no longer covered. She finds the ventolin also helpful as needed. She is also concerned because her mother has significant respiratory conditions. Will go ahead and request additional blood work to assess potential comorbidities that may indeed exacerbate some of his respiratory symptoms. She does follow closely with allergy immunology and will be starting allergy shots now that her condition is improved. No recent imaging studies available. Will have the patient undergo a chest x-ray in addition to blood work. Will switch her Symbicort over to Dulera where she can have some benefit of the formoterol fast effect. in the office we did have the patient undergo a spirometry which demonstrated a normal flow volume loop which is very reassuring. She does take metoprolol for issues with her blood pressure in time she has taking propranolol for her anxiety. I did advise her to try to avoid the propranolol due to the fact that is a non selective beta agonist sick and worsen her wheezing and asthma symptoms. Based on the fact that her flow volume loop is normal then safe for her to continue the metoprolol this time but I would encourage her not to increase the dose if possible. 01/30/2024 the patient is here for pulmonary follow-up visit. Overall the patient has been doing well. We sent her Dulera but seems that he started hard time. She is having some shortness of breath. Therefore I do believe that she will do better with rescue inhaler. Will go ahead and switch it to the pharmacy. She did have a chest x-ray which I personally reviewed no significant abnormalities noted. She also had blood work. Her eosinophils were within normal limits. The patient also has been having issues with sleep. Complains of daytime drowsiness. Her [place] score is elevated 08/02. 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 The patient does have risk for sleep apnea. In addition to that she is going to need a total hip replacement. And she will need a sleep study at this time to assess her for sleep apnea in specially before her surgery. The patient is working on weight loss in order to be able have her surgery. Will therefore optimize respiratory therapy as well to try to help her with her significant wheezing. 08/05/2024 the patient is here for a pulmonary follow-up visit. The patient overall has been doing well. She did have a respiratory illness in the beginning of the fall. Lastly that she developed COVID. She did take Paxlovid. The cord did not affect her lungs. She is back to her baseline. She did try the Breztri inhaler but it was not helpful. Therefore she went back to Dulera. The pressure was causing cough. Now her insurance is no longer covering Dulera and will cover Symbicort next year. Was not Symbicort in the beginning of the year. For now the patient is doing well. She had an x-ray that was without any acute disease. The patient also was requested to have a home sleep study. However the insurance would cover here [place]. Therefore we have to send her to a different institution. Will go ahead and start the process. Patient returns 6 months. If she has any issues prior to that she will call for an earlier assessment. 12/31/2024 the patient is here for a pulmonary follow-up visit. Overall the patient has been doing okay. She was sick with a respiratory viral illness resulting worsening cough chest congestion wheezing. She did go to an urgent care and the patient was given Augmentin. She took it for about for 5 days but then developed significant diarrhea and she stopped it. She did call the office we have called some prednisone she did start taking it and she has been a little better. Her cough still bothering her at nighttime she has a hard time sleeping will go and start her on a Z-Krishna and also will go ahead and provide her cough medication. She will continue with respiratory therapy. In the meantime she does have some daytime drowsiness. [place] score is elevated 8/24 but primarily now because she has a cough. She did have a sleep study demonstrating mild sleep apnea with an AHI of 7. At this point she can continue with positional therapy as this may be just as effective to her sleep apnea. She can proceed with her orthopedic surgery at this time. The patient did have a chest x-ray at the urgent care I do not have the results but she was told that they will call her if any abnormalities were noted. She was not called. 03/22/2025 the patient is here for sick visit. She started developing pleuritic chest pain primarily on the left side moderate severity. Feels like a sharp pain when she takes a deep breath in. She was evaluated and had blood work done although mainly focusing on the cardiac status. Cardiac enzymes apparently negative and her EKG was stable per report. The patient does have a questionable history of antiphospholipid syndrome. She has had issues with significant leg pain and swelling due to her orthopedic issues. Therefore, will go ahead and have her get blood work again including a D-dimer to make sure to rule out the possibility of thromboembolic disease. Will go ahead and treat her for pleurisy this time. She also has a cough some chest congestion so therefore will give her a mild antibiotic to treat her for respiratory illness. If the patient is no better she will require additional imaging studies even if the D- dimer is negative. In the meantime the patient is having significant hip issues and just require a total hip replacement. Hopefully the patient is start feeling better so we can clear her to have surgery as soon as possible. [facility] Medical History (Updated 03/23/25 @ 13:00 by George Ghosh MD) Palpitation Asthma Family History (Updated 08/05/24 @ 10:20 by RAE Metcalf) Father History of heart attack Mother Cancer History of emphysema IgG deficiency Social History Household Members: Family Housing: House Alcohol intake: current Comment: Rare Patient Tobacco Use Status: Former Tobacco user Tobacco use type: Cigarette Cigarettes Per Day: 0.5 Years Smoked: 2 Review of Systems Const Denies chills, Reports fatigue, Denies fever(s), Denies weight gain and Denies weight loss Eyes Reports no additional complaints ENT Denies dizziness Card Reports chest pain, Denies leg edema, Denies lightheadedness, Denies palpitations, Denies dyspnea on exertion, Denies orthopnea and Denies other Resp Reports cough, Reports pain on inspiration, Reports pain with cough, Denies dyspnea on exertion and Reports wheezing GI Denies hematochezia and Denies change in stool character Musc Denies abnormal gait, Denies muscle weakness, Denies numbness, Denies radiating pain into limb and Denies tingling Skin/Breast Denies rash Neuro Denies abnormal gait, Denies dizziness, Denies numbness and Denies tingling Endo Reports fatigue and Denies palpitations Cricket/Lymph Denies lymphadenopathy Aller/Immun Reports wheezing Physical Exam Vital Signs: Last Vital Signs Pulse 78 03/22/25 15:27 BP 124/76 03/22/25 15:27 Pulse Ox 96 03/22/25 15:27 Oxygen Delivery Method Room Air 03/22/25 15:27 BMI result Body Mass Index 42.5 Const General: comfortable Neck Neck: Yes supple Chest Chest palpation & inspection: normal inspection of the chest Resp Effort & Inspection: normal respiratory effort, Actively coughing and No prolonged expiratory phase Auscultation: no wheezes, diminished lung sounds and No rub present Cardio Heart sounds: S1 normal heart sound present and S2 normal heart sound present GI Palpation (GI): Soft to palpation Skin General skin exam: no rashes or lesions noted Extrem General: Yes no clubbing, cyanosis or edema Assessment & Plan Assessment & Plan (1) Asthma: Code(s): J45.909 - Unspecified asthma, uncomplicated Category: Medical Qualifiers: Asthma complication type: uncomplicated Asthma persistence: persistent Asthma severity: moderate Qualified Code(s): J45.40 - Moderate persistent asthma, uncomplicated (2) KARLEY (obstructive sleep apnea): Code(s): G47.33 - Obstructive sleep apnea (adult) (pediatric) Category: Medical (3) Palpitation: Code(s): R00.2 - Palpitations Category: Medical (4) Pleuritic chest pain: Code(s): R07.81 - Pleurodynia Category: Medical (5) Pre-op chest exam: Code(s): Z01.811 - Encounter for preprocedural respiratory examination Category: Medical Plan Bloodwork Start Prednisone course Start Zpack continue symbicort VIJAY as needed nebs BID until better cough medicine home PSG, only mild KARLEY, will continue positional therapy Once her Chest pain is better she is able to undergo anesthesia and orthopedic surgery F/U 2-3 months Orders: Orders Troponin-I High Sensitivity 03/22/25 R07.81 - Pleurodynia Complete Blood Count Auto Diff 03/22/25 R07.81 - Pleurodynia Basic Metabolic Panel 03/22/25 R07.81 - Pleurodynia Immunoglobulin E 03/22/25 R07.81 - Pleurodynia D Dimer High Sensitivity 03/22/25 R07.81 - Pleurodynia JENNIE Reflex Titer and Pattern 03/22/25 R07.81 - Pleurodynia Erythrocyte Sedimentation Rate 03/22/25 R07.81 - Pleurodynia Cyclic Citrullinated Peptide 03/22/25 R07.81 - Pleurodynia Medications: New azithromycin 500 mg PO DAILY 5 tabs 0RF 5 days prednisone PO daily; Take 2 tabs daily x 5 days, then 1 tablet daily x 5 days 15 tabs 0RF 10 days Coding Level of Care Code Est Pt Level 4 (27614) Diagnoses Moderate persistent asthma without complication J45.40 Asthma complication type: uncomplicated Asthma persistence: persistent Asthma severity: moderate KARLEY (obstructive sleep apnea) G47.33 Palpitation R00.2 Pleuritic chest pain R07.81 Pre-op chest exam Z01.811 Time Spent (min) 16
--- OUTSIDE RECORDS SUMMARY | 2025-03-22 16:38 | XMS_ITS | Clinical Summary ---
Author Organization [facility] Address [address] [place] [address] Care Team Providers Care Guest Advisor Name Role Phone Zulma Taylor Primary Care Provider [phone] Allergies Active Allergy Reactions Criticality Noted Date [...] 66 03/07/2023 7:38 AM EDT Temperature 36.7 C (98 F) 03/07/2023 7:38 AM EDT Respiratory Rate - [...] [facility] ual Screening 09/09/2024 Influenza Vaccine (#1) 2025 , 06/26/2022, 08/10/2021, Additional history exists RSV Vaccine (60+ years old a nd patients) (1 - 1-dose 75+ series) 2048 Procedures * Due to [place] [employer] law, this organization might not be sharing negative HIV tests. Procedure Name Priority Date/Time Associated Diagnosis Comments COMPREHENSIVE METABOLIC PANEL Routine 03/07/2023 8:39 AM EDT Abnormal liver function test from Last 3 Months or Most Recently Relevant to Health Maintenance Results * Due to [place] [employer] law, this organization might not be sharing negative HIV tests. * Comprehensive metabolic panel (03/07/2023 8:39 AM EDT) NA 137 135 - 145 mmol/L 03/07/2023 9:54 AM EDT [facility] K 3.7 3.5 - 5.3 mmol/L 03/07/2023 9:54 AM EDT [facility] Cl 101 97 - 110 mmol/L 03/07/2023 9:54 AM EDT [facility] CO2 30 24 - 32 mmol/L 03/07/2023 9:54 AM EDT [facility] Anion Gap 6 5 - 15 03/07/2023 9:54 AM EDT [facility] Glucose 96 70 - 99 mg/dL [facility]/07[facility]23 [facility] Creatinine 0.68 0.50 - 1.20 mg/dL 03/07/2023 9:54 AM [facility] Calcium 9.5 8.7 - 10.7 mg/dL 03/07/2023 9:54 AM [facility] Total Protein 7.7 6.0 - 8.0 g/dL 03/07/2023 9:54 AM [facility] Albumin 4.2 3.5 - 4.8 g/dL 03/07/2023 9:54 AM [facility] Bilirubin, Total 0.4 0.3 - 1.2 mg/dL 03/07/2023 9:54 AM [facility] Alkaline Phosphatase 58 30 - 115 U/L 03/07/2023 9:54 AM [facility] AST 17 10 - 40 U/L 03/07/2023 9:54 AM [facility] ALT 16 10 - 40 U/L 03/07/2023 9:54 AM [facility] BUN 15 7 - 23 mg/dL 03/07/2023 9:54 AM [facility] eGFR >90 >=60 mL/min/1. 73m2 03/07/2023 9:54 AM [facility] Comment:The estimated glomer ular filtration [...] MD LAB BLOOD ORDERABLES Final Resul t [facility] [address] [place] [address], [place] from Last 3 Months or Most Recently Relevant to Health Maintenance Insurance * Guarantor: Rosie Calderon Account Type Relation to Patient Date of Phone Billing Address Personal/Family Self 1975 [address] [place] [address] H[place] * Guarantor: Rosie Calderon Account Type Relation to Patient Date of Phone Billing Address Third Green Party Liability Self 1975 [address] [place] [address] Care Teams Guest Advisor Relationship Specialty Start Date End Date Zulma Taylor [address] [place] [id number] PCP - General 03/28/17
--- OUTSIDE RECORDS SUMMARY | 2025-03-22 16:38 | XMS_ITS | Clinical Summary ---
Author Organization [facility] Address [address] [place] [address] Care Team Providers Care Field Marketer Name Role Phone Mckayla Grimes MD Primary [...] 79 04/15/2023 2:03 PM EDT Temperature 36.8 C (98.2 F) 04/15/2023 2:03 PM EDT Respiratory Rate - - Oxygen Saturation 99% [...] Depression Screening 04/15/2024 04/15/2023 Influenza Vaccine (#1) 2025 2, 08/10/2021, 07/25/2020, Additional history exists RSV Ped < 20 months Aged Out No longe r eligible based on patient's age to complete this topic Care Teams Field Marketer Relationship Specialty Start Date End Date Mckayla Grimes MD PCP - General Internal Medicine 04/16/23
--- OUTSIDE RECORDS SUMMARY | 2025-03-22 16:38 | XMS_ITS ---
Author Name [facility] Organization Unknown Care Team Organization Name Specialty Phone Email Start Date End Da te [facility] NO PROVIDER Primary Care 09/29/2023 [facility] 023 [facility]
--- OUTSIDE RECORDS SUMMARY | 2025-03-22 16:39 | XMS_ITS | Patient Health Record ---
Author Organization [facility] Address [address] [place] [address] Care Team Providers Care Tank Truck Mechanic Name Role Phone Liv Sandoval Unavailable [phone] Reason For Referral No Information Medications Medication SIG (Take, Route, Fr equency, Duration) Notes Start Date End Date Status Protonix 10MG 1 ORAL daily; Duration: -3 Sadi- 2 Active Nasonex 50MCG 2 SPRAYS Nasal DAILY; Duration: -3 Sadi- 1 09/23/2011 Active Rose Mary 180 MG 1 ORAL daily; Duration: -3 Sadi- 07/24/20 12 Active Albuterol 90 MCG 2 Inhalation q6h; Duration: -3 Sadi- Active Plan Of Treatment No Information Insurance Providers Payer Name Payer Address Payer Phone Subscriber Number Group Number Insured Name Patient Relationship to Insured Coverage Start Date Coverage End Date [facility] [address] [place] [address] [phone] [id number] JANES GARCIA Self - patient is the insured
== END 2025-03-22 16:22 | disposition home or self-care (01) ==
LOC: HO.HPS 15:26
PROVIDERS: PCP Internal Medicine; Visit Provider Hospitalist
DX: J45.40 Moderate persistent asthma, uncomplicated (principal); G47.33 Obstructive sleep apnea (adult) (pediatric); R00.2 Palpitations; R07.81 Pleurodynia; Z01.811 Encounter for preprocedural respiratory examination
CPT/HCPCS: 99214

== ENCOUNTER 2025-03-22 15:50 | Outpatient (REF) | payer OTHER, SELFPAY ==
[2025-03-22 16:11] LABS: MANUAL DIFF FLAG NO
[2025-03-22 17:20] LABS: Hematocrit 38.2 % (37.0-47.0); Hemoglobin 12.7 g/dl (12.0-16.0); Imm Gran Abs Auto 0.03 X10*3/uL (0.00-0.03); Imm Gran Pct Auto 0.4 % (0.0-0.4); Lymphocytes Absolute Auto 2.1 X10*3/uL (1.2-4.9); Mean Corpuscular HGB Conc 33.2 g/dl (31.0-35.0); Mean Corpuscular Hemoglobin 29.5 pg (27.0-33.0); Mean Corpuscular Volume 88.6 fL (80.0-98.0); NRBC Abs Auto 0.000 X10*3/uL (0.0-0.012); NRBC Pct Auto 0.0 /100WBC (0.0-0.2); Platelet Count 415 X10*3/uL (160-400); Red Blood Count 4.31 X10*6/uL (4.20-5.50); White Blood Count 7.7 X10*3/uL (4.8-10.8)
[2025-03-22 17:40] LABS: D Dimer High Sensitivity < 150 NG/ML
[2025-03-22 17:59] LABS: Anion Gap 10 (12-20); Blood Urea Nitrogen 22 mg/dL (9-16); Calcium 9.3 mg/dL (8.4-10.2); Carbon Dioxide 27 mmol/L (22-29); Chloride 108 mmol/L (96-108); Estimated Glomerular Filt Rate > 60; Potassium 3.6 mmol/L (3.3-5.1); Sodium 141 mmol/L (135-145)
[2025-03-22 18:02] LABS: Troponin-I High Sensitivity < 2.7 ng/L (<3.5-17.0)
[2025-03-28 20:59] LABS: Anti Nuclear Antibody Pattern Nuclear, Speckled; Anti Nuclear Antibody Screen POSITIVE (NEGATIVE); Anti Nuclear Antibody Titer 1:40 titer
== END 2025-03-22 15:51 | disposition home or self-care (01) ==
LOC: HO.LAB 15:50
PROVIDERS: PCP Nurse Practitioner Family; Visit Provider Hospitalist
DX: J45.40 Moderate persistent asthma, uncomplicated (principal); G47.33 Obstructive sleep apnea (adult) (pediatric); R00.2 Palpitations; R07.81 Pleurodynia; Z01.811 Encounter for preprocedural respiratory examination
CPT/HCPCS: 36415; 80048; 82785; 84484; 85025; 85379; 85652; 86038; 86039; 86200

== ENCOUNTER 2025-03-31 13:06 | Outpatient (AMB) | payer OTHER, SELFPAY ==
[2025-03-31 13:11] VITALS: BP 140/100; PULSE 64; O2SAT 97; BMI 43.0
--- NOTE | 2025-03-31 13:11 | A.OFFVIS_ITS ---
Vital Signs 03/31/25 13:11 Height 5 ft 7.5 in Weight 278 lb 6 oz BMI 43.0 BP 140/100 H Blood Pressure Location Lt brachial Position Sitting Pulse 64 Pulse Source Pulse Oximeter Pulse Oximetry (%) 97 Oxygen Delivery Method Room Air Intake Visit Reasons: Follow up Intake Note: Patient presents for SS. Allergies cromolyn Adverse Reaction (Severe, Verified 03/31/25 13:12) Skin Rash minocycline Adverse Reaction (Severe, Verified 03/31/25 13:12) Hemorrage HPI HPI Follow up: Details: She had pleurisy end of February. She saw paper steamer who prescribed prednisone course and z-pack. Lab workup revealed borderline JENNIE 1:40. Improved 5 days after treatment. hx of malar rash for years that is currently controlled. She had a rash in September involving her anterior neck. Hair loss in the last two months. She should is a lot in the shower. Raynaud's syndrome is active with cold weather. Mostly in left foot. Warming helps. No fevers. No recent infection. She feels pain under jaw line when lays on side. Dentist did not feel swollen glands. Ophthalmology exam is in 9 months from now. 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 MS 10 minutes. Hip replacement delayed due to plurisy. She needs cardiac clearance after her recent pleurisy episode. Next appointment is in June. Dry mouth- uses xylimelts, biotene mouthwash. Feels like she is choking when mouth is dry. [facility] Medical History (Updated 03/31/25 @ 15:57 by Dionicio Cm MD) Acute dry pleurisy Palpitation Asthma Family History Father History of heart attack Mother Cancer History of emphysema IgG deficiency Social History Household Members: Family Housing: House Alcohol intake: current Comment: Rare Patient Tobacco Use Status: Former Tobacco user Tobacco use type: Cigarette Cigarettes Per Day: 0.5 Years Smoked: 2 Physical Exam Vital Signs: Last Vital Signs Pulse 64 03/31/25 13:11 BP 140/100 H 03/31/25 13:11 Pulse Ox 97 03/31/25 13:11 Oxygen Delivery Method Room Air 03/31/25 13:11 BMI result Body Mass Index 43.0 Const Other: General: Comfortable Oral: No lesions present. Lymph nodes: No cervical lymphadenopathy CVS: RRR Respiratory: clear to auscultation bilaterally. Good respiratory effort Skin: Anterior chest telangiectasia present. No malar erythema present. MSK: Normal range of motion of upper extremities. She has limited right hip flexion and rotation due to uncontrolled pain. Right knee flexion is limited due to hip pain. Left knee flexion 90 degrees with normal left hip rotation. Assessment & Plan Assessment & Plan (1) Positive JENNIE (antinuclear antibody): Comment: Borderline 01:40, recent hair loss, pleurisy, Raynaud's syndrome, rashes, history of malar rash, sicca symptoms. 03/2024 labs revealed negative JENINE, AKHIL, SLE specific disease activity markers. Code(s): R76.8 - Other specified abnormal immunological findings in serum Category: Medical Plan: I will complete workup for SLE with labs Return to clinic in 3 months (2) Keratoconjunctivitis sicca: Comment: Dry eyes is controlled with Xiidra. She has dry mouth currently being managed with Biotene mouthwash and XyliMelts. When dry mouth is uncontrolled she feels like she is choking. She had keratoconjunctivitis sicca noted on eye exam from 02/28/2023. She also has meibomian gland dysfunction. Her food assembler kitchen move practices from [facility]. She will be establishing with a new food assembler kitchen. Workup from [facility] has revealed negative JENNIE, SSA/SSB antibody, SPEP, ESR, complements, dsNDA, sm/carbide tool maker. CRP slightly elevated. We discussed next steps in diagnostic workup for Sjogren syndrome with Nataliia's test. If Nataliia's test is abnormal, we will consider obtaining minor salivary gland biopsy. Code(s): H16.229 - Keratoconjunctivitis sicca, not specified as Sjogren's, unspecified eye Category: Medical Plan: Continue follow-up with Ophthalmology for management of keratoconjunctivitis sicca. She will plan to have Nataliia's test with next eye exam for further workup of Sjogren syndrome If she continues to feel like she is choking, she will need further workup for dysphagia She will try other Biotene products [id number] Continue XyliMelts Return to clinic in 3 months Orders: Orders Complement C4 Today R76.0 - Raised antibody titer Erythrocyte Sedimentation Rate Today R76.0 - Raised antibody titer Protein Creatinine Ratio, Ur Today R76.0 - Raised antibody titer DNA Double Stranded-Crithidia Today R76.0 - Raised antibody titer Complement C3 Today R76.0 - Raised antibody titer C Reactive Protein Today R76.0 - Raised antibody titer UA w Microscopic Today R76.0 - Raised antibody titer Sjogren's Antibodies Today R76.0 - Raised antibody titer Sm Sm/SECOND FACING BASTER Antibodies Today R76.0 - Raised antibody titer Anti DNA DS Antibody Today R76.0 - Raised antibody titer Rheumatoid Factor Today R76.0 - Raised antibody titer Coding Level of Care Code Est Pt Level 4 (08174) Complex EM visit Add On G2211 Diagnoses Positive JENNIE (antinuclear antibody) R76.8 Keratoconjunctivitis sicca H16.229
--- OUTSIDE RECORDS SUMMARY | 2025-03-31 13:34 | XMS_ITS | Clinical Summary ---
Author Organization [facility] Address [address] [place] [id number] Phone Care Team Providers Care Integration Software Developer Name Role Phone Roma Reddy MD Primary Care Provider [phone] Medications budesonide-form oterol 160-4.5 mcg/actuation inhaler Inhale 2 puffs into the lungs. Active hydroCHLOROthia zide 25 MG tablet 3 Active metoprolol succinate (TOPROL-XL) 50 MG 24 hr tablet Take 50 mg by mouth daily. Active montelukast sodium (SINGULAIR ORAL) Take by mouth. 3 Active albuterol 90 mcg/actuation inhalerIndicati ons:Moderate persistent asthma, unspecified whether complicated Inhale 2 puffs into the lungs every 6 (six) hours as needed for wheezing or shortness of breath/dyspnea. 6.7 g 2 5 Active albuterol 2.5 mg /3 mL (0.083 %) nebulizer solutionIndicat ions:Moderate persistent asthma, unspecified whether complicated Take 3 mL (2.5 mg total) by nebulization every 6 (six) hours as needed for wheezing or shortness of breath/dyspnea. 30 mL 2 5 Active Active Problems Problem Noted Date Diagnosed Date Antiphospholipid antibody positive 12/15/2024 Severe obesity 12/15/2024 Primary hypertension 01/23/2019 Asthma 01/13/2015 Social History Tobacco Use Types Packs/Day Years Used Date Smoking Tobacco: Former Comments:Quit smokin09/09 Comments Unknown Sex and Gender Information Value Date Recorded Sex Assigned at Female 09/30/2024 2:01 PM EST Legal Sex Female 5:47 PM EST Gender Identity Female 09/30/2024 2:01 PM EST Sexual Orientation Straight 09/30/2024 2: 01 PM EST Last Filed Vital Signs Vital Sign Reading Time Taken Comments Blood Pressure 133/81 08/23/2014 10:25 AM EST Pulse 78 08/23/2014 10:25 AM EST Temperature 36.8 C (98.3 F) 08/23/2014 10:25 AM EST Respiratory Rate - - Oxygen Saturation - - Inhaled Oxygen Concentration - - Weight 99.3 kg (219 lb) 08/23/2014 10:25 AM EST Height 171.5 cm (5' 7.5 ) 08/23/2014 10:27 AM ES T Body Mass Index 33.79 08/23/2014 10:25 AM EST Plan of Treatment Not on file Medical Devices Not on file Insurance COMPLETE HMO [facility] [place] [address] [place] [address] COMPLETE HMO [facility] [place] [address] [place] [address] COMPLETE HMO [facility] [place] [id number] [facility] [place] [place] [address] COMPLETE HMO [facility] PPO COMPLETE HMO [facility] PPO [employer] Care Teams Integration Software Developer Relationship Specialty Start Date End Date Roma Reddy MD [address] [place] [id number] PCP - General 09/30/24 Additional Source Comments The information contained in this document represents components of the legal health record. It is not the complete legal health record.[facility]
--- OUTSIDE RECORDS SUMMARY | 2025-03-31 13:34 | XMS_ITS | Clinical Summary ---
Author Organization [facility] Address [address] [place] [address] Care Team Providers Care Research Quality Assurance Analyst Name Role Phone Mckayla Grimes MD Primary [...] age to complete this topic Care Teams Research Quality Assurance Analyst Relationship Specialty Start Date End Date Mckayla Grimes MD PCP - General Internal Medicine 04/16/23
--- OUTSIDE RECORDS SUMMARY | 2025-03-31 13:34 | XMS_ITS | Clinical Summary ---
Author Organization [facility] Address [address] [place] [address] Care Team Providers Care Shank Inspector Name Role Phone Zulma Taylor Primary Care Provider [phone] Allergies Active Allergy Reactions Criticality Noted Date [...] 75+ series) 2048 Procedures * Due to [place] [employer] law, this organization might not be sharing negative HIV tests. Procedure Name Priority Date/Time Associated Diagnosis Comments COMPREHENSIVE METABOLIC PANEL Routine 03/07/2023 8:39 AM EDT Abnormal liver function test from Last 3 Months or Most Recently Relevant to Health Maintenance Results * Due to [place] [employer] law, this organization might not be sharing negative HIV tests. * Comprehensive metabolic panel (03/07/2023 8:39 AM EDT) NA 137 135 - 145 mmol/L 03/07/2023 9:54 AM EDT [facility] K 3.7 3.5 - 5.3 mmol/L 03/07/2023 9:54 AM EDT [facility] Cl 101 97 - 110 mmol/L 03/07/2023 9:54 AM EDT [facility] CO2 30 24 - 32 mmol/L 03/07/2023 9:54 AM EDT [facility] Anion Gap 6 5 - 15 03/07/2023 9:54 AM EDT [facility] Glucose 96 70 - 99 mg/dL 03/07/2023 9:[facility] Creatinine 0.68 0.50 - 1.20 mg/dL 03/07/2023 9:54 AM [facility] Calcium 9.5 8.7 - 10.7 mg/dL 03/07/2023 9:54 AM [facility] Total Protein 7.7 6.0 - 8.0 g/dL 03/07/2023 9:54 AM [facility] Albumin 4.2 3.5 - 4.8 g/dL 03/07/2023 9:54 AM [facility] Bilirubin, Total 0.4 0.3 - 1.2 mg/dL 03/07/2023 9:54 AM [facility] Alkaline Phosphatase 58 30 - 115 U/L 03/07/2023 9:54 AM [facility] AST 17 10 - 40 U/L 03/07/2023 9:54 AM [facility] ALT 16 10 - 40 U/L 03/07/2023 9:54 AM [facility] BUN 15 7 - 23 mg/dL 03/07/2023 9:54 AM [facility] eGFR >90 >=60 mL/min/1. 73m2 03/07/2023 9:54 AM [facility] Comment:The estimated glomer ular [...] MD LAB BLOOD ORDERABLES Final Resul t [facility] [address] [place] [address], [place] from Last 3 Months or Most Recently Relevant to Health Maintenance Insurance * Guarantor: Rosie Calderon Account Type Relation to Patient Date of Phone Billing Address Personal/Family Self 1975 [address] [place] [address] [place] * Guarantor: Rosie Calderon Account Type Relation to Patient Date of Phone Billing Address Third [employer] Liability Self 1975 [address] [place] [address] Care Teams Shank Inspector Relationship Specialty Start Date End Date Zulma Taylor [address] [place] [phone] PCP - General 03/28/17
--- OUTSIDE RECORDS SUMMARY | 2025-03-31 13:34 | XMS_ITS | Clinical Summary ---
Author Organization [facility] 299 [facility] Address [address] [place] [address] Phone Care Team Providers Care Item Processor Name Role Phone Mckayla Grimes MD Primary Care Provider [phone] Allergies Active Allergy Reactions Criticality Noted Date Comments Adhesive Tape-Silicones Rash Low 03/02/2015 Bandaids Amlodipine Swelling 10/20/2019 Eye swelling Bacitracin Rash Low 03/02/2015 Ciprofloxacin-Hydrocor tisone 02/03/2023 Codeine Headache,Nausea And Vomiting,Nausea Only 03/02/2015 Other Reaction(s): Other (See Comments) Nausea, migraine. Headache Nausea, migraine. 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 Headaches Potassium Dichromate 10/30/2016 Medications acetaminophen (TYLENOL 8 HOUR) 650 mg 8 hr tablet Take 500 mg by mouth every night at bedtime. 2 tabs Active acyclovir (ZOVIRAX) 5 % cream Apply 1 application. topically as needed. 2 Active albuterol 2.5 mg /3 mL (0.083 %) nebulizer solution as needed. 1 Active albuterol HFA (PROAIR HFA ; PROVENTIL HFA ; VENTOLIN HFA) 90 mcg/actuation inhaler Inhale 2 puffs by mouth every 6 hours as needed. 8 Active amphetamine-dex troamphetamine XR (ADDERALL XR) 20 mg 24 hr capsule Take 1 capsule (20 mg total) by mouth. 2 Active azelastine (ASTELIN) 137 mcg (0.1 %) nasal spray 2 Sprays by Each Nare route 2 times daily. Use in each nostril as directed 1 Active azelastine (OPTIVAR) 0.05 % ophthalmic solution 1 Active budesonide-form oteroL (SYMBICORT) 160-4.5 mcg/actuation inhaler Inhale 2 puffs into the lungs 2 (two) times a day. 1 Active EPINEPHrine 0.3 mg/0.3 mL syringe 1 Device. 1 Active hydroCHLOROthia zide (HYDRODIURIL) 25 mg tablet Take 1 tablet (25 mg total) by mouth 1 (one) time each day. 3 Active fexofenadine (ANDREW) 180 mg tablet Daily Active LORazepam (ATIVAN) 0.5 mg tablet lorazepam 0.5 mg tablet Active lifitegrast (XIIDRA OPHT) Apply to eye. 1 drop each eye BID Active meloxicam (MOBIC) 15 mg tablet 3 Active metoprolol succinate (TOPROL-XL) 50 mg 24 hr tablet 2 (two) times a day. 3 Active mometasone (Nasonex) 50 mcg/actuation nasal spray 2 sprays, Daily, 0 Refills, Maintenance 2 Active montelukast (SINGULAIR) 10 mg tablet 1 Active pantoprazole (PROTONIX) 40 mg EC tablet pantoprazole 40 mg tablet,delayed release Active propranoloL (INDERAL) 10 mg tablet 2 tablets (20 mg total) as needed. Active Active Problems Problem Noted Date Diagnosed Date Anti-phospholipid syndrome (CMS/HCC V24) 023 Attention deficit hyperactivity disorder (ADHD) 04/15/2023 Lesion of liver 04/15/2023 Social anxiety disorder 04/15/2023 Primary hypertension 01/23/2019 Encounters Date Type Department Care Team Description 03/17/2025 Telephone Gastroenterology - [address] [facility] [address] [place] [address] Amy Lancaster MD from Last 3 Months Surgical History Surgery Date Site/Laterality Comments HIP SURGERY PROCEDURE:HIP SURGERY UTERINE FIBROID SURGERY PROCEDURE:UTERINE FIBROID SURGERY BREAST SURGERY PROCEDURE:BREAST SURGERY JOINT REPLACEMENT PROCEDURE:JOINT REPLACEMENT ESOPHAGOGASTRODUODENOSCOPY 07/02/2022 nl, nl gastric bx COLONOSCOPY 07/02/2022 sigmoid lesion stable, tics, hemorrhoids FLEXIBLE SIGMOIDOSCOPY 02/17/2016 stable sigmoid lesion FLEXIBLE SIGMOIDOSCOPY 11/09/2014 cystic lesion COLONOSCOPY W/ BIOPSIES 10/01/2013 tics, sigmoid mass, 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 Medical History Medical History Date Comments Asthma DX:Asthma Hypertension DX:Hypertension Anti-phospholipid syndrome ([facility] V24) DX:Anti-phospholipid syndrome (HCC) Social anxiety disorder DX:Socia l anxiety disorder Elevated AST (SGOT) DX:Elevated AST (SGOT) Lesion of liver DX:Lesion of vanessa er ADHD (attention deficit hype ractivity disorder) DX:ADHD (attention deficit hyperactivity disorder) Allergic rhinitis DX:Allergic rh initis Arthritis DX:Arthritis Clotting disorder ([facility] V24) DX:Clotting disorder (HCC) GERD (gastroesophageal reflux disease) DX:GERD (gastroesophageal reflux disease) Low back pain DX:Low back pain Obesity DX:Obesity Osteoarthritis DX:Osteoarthriti s Visual impairment DX:Visual impa irment Family History Medical History Relation Name Comments Autoimmune disease Brother Hepatitis Brother Hyperlipidemia Brother Raynaud syndrome Brother Heart attack Father Heart disease Father Hyperlipidemia Father Aneurysm Maternal Grandmother brain Ataxia Maternal Grandmother Stroke Maternal Grandmother Anxiety disorder Mother COPD Mother Alpha 1 tryptas e def Cancer Mother Small Cell LUng CA Clotting disorder Mother Depression Mother Lung disease Mother Thyroid disease Mother Heart disease Paternal Grandfather Relation Name Status Comments Brother Alive Father Maternal Grandfather Maternal Grandmother Mother Paternal Grandfather Paternal Grandmother Social History Tobacco Use Types Packs/Day Years Used Date Smoking Tobacco: Former Cigarettes Q uit: 09/09/1991 Smokeless Tobacco: Never Alcohol Use Standard Drinks/Week Comments Not Currently 0 (1 standard drink = 0.6 oz pur e alcohol) Comments Unknown Sex and Gender Information Value Date Recorded Sex Assigned at Not on file Legal Sex Female 1:33 PM EST Gender Identity Not on file Sexual Orientation Not on file Obstetrics History Last Filed Vital Signs Vital Sign Reading Time Taken Comments Blood Pressure 131/80 04/15/2023 2:06 PM EDT Sitting Left arm Forearm Pulse 79 04/15/2023 2:03 PM EDT Temperature - - Respiratory Rate - - Oxygen Saturation - - Inhaled Oxygen Concentration - - Weight 124 kg (274 lb) 11/06/2024 10:50 AM EST Height 172.7 cm (5' 8 ) 11/06/2024 10:5 0 AM EST Body Mass Index 41.66 11/06/2024 10:50 AM EST Plan of Treatment Health Maintenance Due Date Last Done Comments Breast Cancer Screening 1975 DTaP,Tdap,and Td Vaccines (1 - Tdap) 1992 Hepatitis B Vaccines (1 of 3 - 19+ 3-dose series) 1992 Cervical Cancer Screening: Pap Smear 1994 Cholesterol Screening (Lipid Panel) 08/18/2022 Colorectal Cancer Screening: Colonoscopy 08/18/2022 HIV Screening 08/18/2022 Hepatitis C Screening 08/18/2022 Social Influencers of Health Screening 08/18/2022 Zoster Vaccines (1 of 2) 12/17/2023 Hypertension/CHF/CAD Annual BMP Blood Test 03/07/2024 03/07/2023, 03/07/2023 COVID-19 Vaccine ( season) 2024 07/10/2021, 11/26/2020, 10/29/2020 Depression Screening 09/09/2024 Influenza Vaccine (#1) 2025 , 09/24/2023, 06/26/2022, Additional history exists Pneumococcal Vaccine: 50+ Years Completed 08/05/2024 HIB Vaccines Aged Out No longer eligi ble based on patient's age to complete this topic HPV Vaccines Aged Out No longer eligi ble based on patient's age to complete this topic Hepatitis A Vaccines Aged Out No long er eligible based on patient's age to complete this topic IPV Vaccines Aged Out No longer eligi ble based on patient's age to complete this topic MMR Vaccines Aged Out No longer eligi ble based on patient's age to complete this topic Meningococcal ACWY Vaccine Aged Out N o longer eligible based on patient's age to complete this topic Meningococcal B Vaccine Aged Out No l onger eligible based on patient's age to complete this topic RSV Immunization Patients Under 20 months Aged Out No longer eligible based on patient's age to complete this topic Varicella Vaccines Aged Out No longer eligible based on patient's age to complete this topic Procedures Procedure Name Priority Date/Time Associated Diagnosis Comments ANNUAL BMP BLOOD TEST Routine 03/07/2023 from Last 3 Months or Most Recently Relevant to Health Maintenance Results * Annual BMP Blood Test (03/07/2023) Annual BMP Blood Test Abstracted [facility] Provider HEALTH MAINTENANCE Final Result from Last 3 Months or Most Recently Relevant to Health Maintenance Insurance Care Teams Item Processor Relationship Specialty Start Date End Date Mckayla Grimes MD [address] [place] [address] PCP - General 04/16/23
--- OUTSIDE RECORDS SUMMARY | 2025-03-31 13:34 | XMS_ITS | Patient Health Record ---
Author Organization [facility] Address [address] [facility] [address] [place] [address] Care Team Providers Care Buggy Man Name Role Phone Liv Sandoval Unavailable [phone] Reason For Referral No Information Medications Medication [...] Insured Coverage Start Date Coverage End Date [facility] [address] [place] [address] [id number] JANES GARCIA Self - patient is the insured
== END 2025-03-31 13:53 | disposition home or self-care (01) ==
PROVIDERS: PCP Nurse Practitioner Family; Visit Provider Internal Medicine Rheumatology
DX: R76.8 Other specified abnormal immunological findings in serum (principal); H16.229 Keratoconjunctivitis sicca, not specified as Sjogren's, unspecified eye
CPT/HCPCS: 99214; G2211

== ENCOUNTER 2025-03-31 13:06 | Outpatient (REF) | payer OTHER, SELFPAY ==
[2025-04-01 21:28] LABS: Antibody to SS-A Antigen <1.0 NEG AI (<1.0 NEG); Antibody to SS-B Antigen <1.0 NEG AI (<1.0 NEG); SM/Ribonucleoprotein Ab <1.0 NEG AI (<1.0 NEG); Smith Protein <1.0 NEG AI (<1.0 NEG)
[2025-04-07 11:23] LABS: DNAds, Crithidia Antibody Negative (Negative)
== END 2025-03-31 13:07 | disposition home or self-care (01) ==
LOC: HO.HKASLDS 13:06
PROVIDERS: PCP Nurse Practitioner Family; Visit Provider Internal Medicine Rheumatology
DX: R21 Rash and other nonspecific skin eruption (principal); H16.229 Keratoconjunctivitis sicca, not specified as Sjogren's, unspecified eye; I73.00 Raynaud's syndrome without gangrene; R68.2 Dry mouth, unspecified; R76.8 Other specified abnormal immunological findings in serum; H53.8 Other visual disturbances; R13.10 Dysphagia, unspecified; R76.0 Raised antibody titer; R09.1 Pleurisy; Z79.899 Other long term (current) drug therapy
CPT/HCPCS: 36415; 85652; 86140; 86160; 86225; 86235; 86255; 86431

== ENCOUNTER 2025-04-23 10:21 | Outpatient (REF) | payer OTHER, SELFPAY ==
--- OUTSIDE RECORDS SUMMARY | 2025-04-23 10:31 | XMS_ITS | Patient Health Record ---
Author Organization [facility] Address [address] [facility] [address] [place] [address] Care Team Providers Care Telephone Information Clerk Name Role Phone Liv Sandoval Unavailable [phone] Reason For Referral No Information Medications Medication [...] Insured Coverage Start Date Coverage End Date [facility] [address] [place] [address] [phone] [id number] JANES GARCIA Self - patient is the insured
--- OUTSIDE RECORDS SUMMARY | 2025-04-23 10:31 | XMS_ITS | Clinical Summary ---
Author Organization [facility] Address [address] [place] [id number] Phone Care Team Providers Care Humidifier Operator Name Role Phone Roma Reddy MD Primary Care Provider [phone] Medications budesonide-form oterol 160-4.5 mcg/actuation inhaler Inhale [...] Devices Not on file Insurance COMPLETE HMO [facility] [place] [address] [place] [address] COMPLETE HMO [facility] [place] [address] [place] [address] COMPLETE HMO [facility] [place] [id number] [facility] [place] [address] [place] [address] COMPLETE HMO [facility] PPO COMPLETE HMO [facility] PPO [employer] Care Teams Humidifier Operator Relationship Specialty Start Date End Date Roma Reddy MD [address] [place] [id number] PCP - General 09/30/24 Additional Source Comments The information contained in this document represents components of the legal health record. It is not the complete legal health record.[facility]
--- OUTSIDE RECORDS SUMMARY | 2025-04-23 10:31 | XMS_ITS | Clinical Summary ---
Author Organization [facility] 299 [facility] Address [address] [place] [address] Phone Care Team Providers Care Boiler Operator Helper Name Role Phone Mckayla Grimes MD Primary Care Provider [phone] Allergies Active Allergy Reactions Criticality Noted Date [...] Encounters Date Type Department Care Team Description 04/12/2025 8:18 AM EDT - 04/12/2025 11:59 PM EDT Hospital Encounter [facility] MRI [address] [place] [id number] Pancreatic cyst Discharge Disposition: Home or Self Care 03/17/2025 Telephone Gastroenterology - [address] [facility] [address] [place] [address] Amy Lancaster MD from Last [...] Comments Asthma DX:Asthma Hypertension DX:Hypertension Anti-phospholipid syndrome ([facility]/HCC V24) DX:Anti-phospholipid syndrome (HCC) Social anxiety disorder DX:Socia l anxiety disorder Elevated AST (SGOT) DX:Elevated AST (SGOT) Lesion of liver DX:Lesion of vanessa er ADHD (attention deficit hype ractivity disorder) DX:ADHD (attention deficit hyperactivity disorder) Allergic rhinitis DX:Allergic rh initis Arthritis DX:Arthritis Clotting disorder ([facility] V24) DX:Clotting disorder (HCC) GERD (gastroesophageal reflux [...] Procedure Name Priority Date/Time Associated Diagnosis Comments MR ABDOMEN WO AND W CONTRAST Routine 04/12/2025 9:35 AM EDT Pancreatic cyst ANNUAL BMP BLOOD TEST Routine 03/07/2023 from Last 3 Months or Most Recently Relevant to Health Maintenance Results * MR Abdomen wo and w Contrast (04/12/2025 9:35 AM EDT) Anatomical Region Laterality Modality Body Magnetic Resonan ce 04/13/2025 3:27 PM EDT Impressions 04/14/2025 11:41 AM EDT There are punctate T2 intense nonenhancing cystic abnormalities of the pancreatic body/tail. These are unlikely to be of clinical significance. No suspicious interval change Extensive fatty change in liver. Small abnormality in the subcapsular ventral aspect of the left lobe of the liver. This is unchanged since at least 04/22/23. In the absence of underlying chronic liver disease or known primary malignancy this does not require any specific imaging follow-up. -------- FINAL REPORT -------- Dictated By: Long Rutledge Dictated Date: 04/13/2025 15:27 ET Assigned Physician: Long Rutledge Reviewed and Electronically Signed By: Long Rutledge Signed Date: 04/14/2025 11:41 ET Workstation ID: [id number] Transcribed By: Self Edit Transcribed Date: 04/13/2025 15:44 ET Narrative 04/14/2025 11:41 AM EDT EXAMINATION: MRI ABDOMEN WITHOUT AND WITH IV CONTRAST CLINICAL INFORMATION: Cystic abnormality of the pancreas. Evaluate for interval changes COMPARISON: 01/05/14, portions of previous 04/22/23. TECHNIQUE: Anatomic and fluid sensitive MR sequences of the abdomen were obtained on a high-field platform. MRCP was performed. Imaging before and after the IV administration of contrast. Amount of IV contrast: 20 mL Type of contrast: Dotarem Volume of contrast discarded: 0 mL FINDINGS: LIVER: The right lobe of the liver measures 19.9 cm which is close to 2 standard deviations above the mean expected. The liver contour is smooth. There is diffuse signal loss on out of phase chemical shift imaging consistent with extensive fatty change. There is a smooth somewhat wedge-shaped 1.5 cm signal abnormality abutting the ventral aspect of the left lobe of the liver. This demonstrates some relative sparing of the fatty change. This is mildly hyperintense on anatomic series. There is some uniform early enhancement persists. There is no washout. This is unchanged when compared to 04/22/23. BILIARY TRACT: There is no cholelithiasis. There is no biliary dilation. There is no gallbladder wall thickening. MRCP: There is no choledocholithiasis. No pancreatic ductal dilation. There are 2 punctate T2 bright round abnormalities of the pancreatic body/tail. There is no enhancement. No definite communication with the main pancreatic duct. SPLEEN: The spleen measures 9.5 cm. No focal abnormality. PANCREAS: No suspicious pancreatic mass. No surrounding stranding or fluid. There are 2 tiny punctate T2 bright nonenhancing lesions in the pancreatic body/tail. No definite communication with the pancreatic duct. No significant change. ADRENAL GLANDS: No suspicious abnormalities. KIDNEYS: There is no dilation of the urinary collecting system on either side. There is no suspicious renal mass. The kidneys enhance symmetrically. GASTROINTESTINAL TRACT: No definite bowel wall thickening. No small bowel dilation. ABDOMINAL WALL: No significant hernia is appreciated. LYMPHOVASCULAR STRUCTURES AND FLUID: There is no abdominal aortic aneurysm. The portal vein enhances. There are no enlarged lymph nodes. There is no free fluid in the upper abdomen. MUSCULOSKELETAL: There may be a hemangioma in the upper lumbar spine. VISUALIZED LOWER CHEST: No suspicious abnormality. Procedure Note Long Rutledge MD - 04/14/2025 EXAMINATION: MRI ABDOMEN WITHOUT AND WITH IV CONTRAST CLINICAL INFORMATION: Cystic abnormality of the pancreas. Evaluate for interval changes COMPARISON: 01/05/14, portions of previous 04/22/23. TECHNIQUE: Anatomic and fluid sensitive MR sequences of the abdomen were obtained seymour high- field platform. MRCP was performed. Imaging before and after the IV administration of contrast. Amount of IV contrast: 20 mL Type of contrast: Dotarem Volume of contrast discarded: 0 mL FINDINGS: LIVER: The right lobe of the liver measures 19.9 cm which is close to 2standard deviations above the mean expected. The liver contour is smooth.There is diffuse signal loss on out of phase chemical shift imagingconsistent with extensive fatty change. There is a smooth somewhat wedge-shaped 1.5 cm signal abnormality abuttingthe ventral aspect of the left lobe of the liver. This demonstrates somerelative sparing of the fatty change. This is mildly hyperintense onanatomic series. There is some uniform early enhancement persists. Thereis no washout. This is unchanged when compared to 04/22/23. BILIARY TRACT: There is no cholelithiasis. There is no biliary dilation.There is no gallbladder wall thickening. MRCP: There is no choledocholithiasis. No pancreatic ductal dilation.There are 2 punctate T2 bright round abnormalities of the pancreaticbody/tail. There is no enhancement. No definite communication with the mainpancreatic duct. SPLEEN: The spleen measures 9.5 cm. No focal abnormality. PANCREAS: No suspicious pancreatic mass. No surrounding stranding orfluid. There are 2 tiny punctate T2 bright nonenhancing lesions in thepancreatic body/tail. No definite communication with the pancreatic duct. No significant change. ADRENAL GLANDS: No suspicious abnormalities. KIDNEYS: There is no dilation of the urinary collecting system on eitherside. There is no suspicious renal mass. The kidneys enhancesymmetrically. GASTROINTESTINAL TRACT: No definite bowel wall thickening. No small boweldilation. ABDOMINAL WALL: No significant hernia is appreciated. LYMPHOVASCULAR STRUCTURES AND FLUID: There is no abdominal aorticaneurysm. The portal vein enhances. There are no enlarged lymph nodes. There is no free fluid in the upperabdomen. MUSCULOSKELETAL: There may be a hemangioma in the upper lumbar spine. VISUALIZED LOWER CHEST: No suspicious abnormality. IMPRESSION: There are punctate T2 intense nonenhancing cystic abnormalities of thepancreatic body/tail. These are unlikely to be of clinical significance. No suspicious interval change Extensive fatty change in liver. Small abnormality in the subcapsular ventral aspect of the left lobe ofthe liver. This is unchanged since at least 04/22/23. In the absence ofunderlying chronic liver disease or known primary malignancy this does notrequire any specific imaging follow-up. -------- FINAL REPORT -------- Dictated By: Long Rutledge Dictated Date: 04/13/2025 15:27 ET Assigned Physician: Long Rutledge Reviewed and Electronically Signed By: Long Rutledge Signed Date: 04/14/2025 11:41 ET Workstation ID: [id number] Transcribed By: Self Edit Transcribed Date: 04/13/2025 15:44 ET Amy Lancaster MD IM MRI PROCEDURES Final Resul t * Annual BMP Blood Test (03/07/2023) Annual BMP Blood Test Abstracted Historical Provider HEALTH MAINTENANCE Final Result from Last 3 Months or Most Recently Relevant to [place] [id number] Care Teams Boiler Operator Helper Relationship Specialty Start Date End Date Mckayla Grimes MD [address] [place] [address] PCP - General 04/16/23
--- OUTSIDE RECORDS SUMMARY | 2025-04-23 10:31 | XMS_ITS | Clinical Summary ---
Author Organization [facility] Address [address] [place] [address] Care Team Providers Care Boiler Fireman Name Role Phone Zulma Taylor Primary Care Provider [phone] Allergies Active Allergy Reactions Criticality Noted Date [...] 75+ series) 2048 Procedures * Due to [place] [employer] law, this organization might not be sharing negative HIV tests. Procedure Name Priority Date/Time Associated Diagnosis Comments COMPREHENSIVE METABOLIC PANEL Routine 03/07/2023 8:39 AM EDT Abnormal liver function test from Last 3 Months or Most Recently Relevant to Health Maintenance Results * Due to [place] [employer] law, this organization might not be sharing negative HIV tests. * Comprehensive metabolic panel (03/07/2023 8:39 AM EDT) NA 137 135 - 145 mmol/L 03/07/2023 9:54 AM EDT [facility] K 3.7 3.5 - 5.3 mmol/L 03/07/2023 9:54 AM EDT [facility] Cl 101 97 - 110 mmol/L 03/07/2023 9:54 AM EDT [facility] CO2 30 24 - 32 mmol/L 03/07/2023 9:54 AM EDT [facility] Anion Gap 6 5 - 15 03/07/2023 9:54 AM EDT [facility] Glucose 96 70 - 99 mg/dL 03/07[facility]2023 9[facility] Creatinine 0.68 0.50 - 1.20 mg/dL 03/07/2023 9:54 AM [facility] Calcium 9.5 8.7 - 10.7 mg/dL 03/07/2023 9:54 AM [facility] Total Protein 7.7 6.0 - 8.0 g/dL 03/07/2023 9:54 AM [facility] Albumin 4.2 3.5 - 4.8 g/dL 03/07/2023 9:54 AM [facility] Bilirubin, Total 0.4 0.3 - 1.2 mg/dL 03/07/2023 9:54 AM [facility] Alkaline Phosphatase 58 30 - 115 U/L 03/07/2023 9:54 AM [facility] AST 17 10 - 40 U/L 03/07/2023 9:54 AM [facility] ALT 16 10 - 40 U/L 03/07/2023 9:54 AM [facility] BUN 15 7 [...] MD LAB BLOOD ORDERABLES Final Resul t [facility] [address] [place] [address], [place] from Last 3 Months or Most Recently Relevant to Health Maintenance Insurance * Guarantor: Rosie Calderon Account Type Relation to Patient Date of Phone Billing Address Personal/Family Self 1975 [address] [place] [address] [place] * Guarantor: Rosie Calderon Account Type Relation to Patient Date of Phone Billing Address Third Alliance Party Liability Self 1975 [address] [place] [address] Care Teams Boiler Fireman Relationship Specialty Start Date End Date Zulma Taylor [address] [place] [address] PCP - General 03/28/17
--- OUTSIDE RECORDS SUMMARY | 2025-04-23 10:31 | XMS_ITS | Clinical Summary ---
Author Organization [facility] Address [address] [place] [address] Care Team Providers Care Striker Out Name Role Phone Mckayla Grimes MD Primary [...] age to complete this topic Care Teams Striker Out Relationship Specialty Start Date End Date Mckayla Grimes MD PCP - General Internal Medicine 04/16/23
[2025-04-23 13:07] LABS: Appearance Urine Turbid; Glucose Urine UA Negative (Negative); PH 5.5 (5.0-9.0); Specific Gravity - Urine >= 1.030 (1.005-1.025); UMIC TRIGGER UA YES
[2025-04-23 14:34] LABS: Protein/Creatinine Ratio, Ur 0.10 (<0.2); Total Protein Urine Random 16 mg/dL (<12)
== END 2025-04-23 10:22 | disposition home or self-care (01) ==
LOC: HO.HKASLDS 10:21
PROVIDERS: Visit Provider Internal Medicine Rheumatology
DX: R76.0 Raised antibody titer (principal); R31.9 Hematuria, unspecified
CPT/HCPCS: 81001; 82570; 84156